=== PATIENT | female | born 1985 | race Hispanic/Latino ===

== ENCOUNTER 2016-04-29 14:17 | Emergency (ER) | payer SELFPAY ==
[2016-04-29 15:09] VITALS: BP 142/86
== END 2016-04-29 22:32 | disposition left against medical advice (07) ==
LOC: ED 14:17
DX: Z20.2 Contact with and (suspected) exposure to infections with a predominantly sexual mode of transmission (principal); Z53.21 Procedure and treatment not carried out due to patient leaving prior to being seen by health care provider

== ENCOUNTER 2017-11-20 10:28 | Inpatient (IN) | payer SELFPAY ==
[2017-11-20] MEDS ORDERED: AMIDATE IV ONE ×2 (10:36→10:37)
[2017-11-20] MEDS ORDERED: ZEMURON IV ONE ×3 (10:37→12:20)
[2017-11-20] MEDS ORDERED: VASELINE LIP THERAPY TP PRN (10:44)
[2017-11-20] MEDS ORDERED: ARTIFICIAL TEARS OPHTH OINT OU PRN (10:44)
--- NOTE | 2017-11-20 10:46 | Emergency Department Report ---
ED General Adult HPI - General Chief complaint: Overdose Stated complaint: OVERDOSE Time Seen by Provider: 11/20/17 10:42 Source: EMS (verbal report received from EMS.ems notes not available at time of chart dictation) Mode of arrival: Stretcher Limitations: Altered Mental Status, Physical Limitation - History of Present Illness Initial comments: This is a 32-year-old female who is not known to this provider previously, who is brought to the hospital by EMS after being found down in the parking lot, for uncertain duration of time and for uncertain mechanism. Apparently, as per EMS, patient had been using GHB. This is received from collateral information from other people in the parking lot. EMS reports normal fingerstick in the field, and no response to Narcan. Upon arrival to the ER, the patient is obtunded, with a GCS of 3. She is therefore intubated emergently for airway protection. After receiving etomidate, 20 mg, patient became agitated, and moved 4 extremities and had to be physically restrained for her safety. She is then given 100 mg of rocuronium. Post intubation, a code trauma is called overhead as the patient was found down for uncertain mechanism and uncertain duration of time. After the patient's airway is secured, breath sounds are clear to auscultation bilaterally, the patient has 2+ pulses in the upper, lower extremities and on appropriate blood pressure is tachycardic. She still has a GCS of 3, and on exposure, has no obvious penetrating or blunt injury. Patient does have some ants crawling on her. Her secondary survey was equally unremarkable. A postintubation x-ray demonstrated that the endotracheal tube was abutting the right mainstem, and was subsequently retracted 2 cm by the respiratory therapist. The patient is made at 1013 given presumed overdose of unknown intent, the noncontrast CT spine of the brain, cervical spine are pending. EKG, appropriate laboratory studies pending at this time. -: unknown Radiation: other Quality: other Consistency: other Improves with: other Worsens with: other Associated Symptoms: other Treatments Prior to Arrival: other (EMS gave Narcan) - Related Data Home Medications Medication Instructions Recorded Confirmed Last Taken No Known Home Medications [No 04/29/16 04/29/16 Unknown Reported Home Medications] Allergies Allergy/AdvReac Type Severity Reaction Status Date / Time No Known Allergies Allergy Verified 11/20/17 10:46 ED Review of Systems ROS: Stated complaint: OVERDOSE Other details as noted in HPI ED Past Medical Hx - Past Medical History Hx Kidney Stones: Yes Additional medical history: STD exposure - Surgical History Additional Surgical History: Left wrist surgery - Social History Smoking Status: Current Every Day Smoker Substance Use Type: Alcohol - Medications Home Medications: Home Medications Medication Instructions Recorded Confirmed Last Taken Type No Known Home Medications [No 04/29/16 04/29/16 Unknown History Reported Home Medications] ED Physical Exam - General Limitations: Altered Mental Status, Physical Limitation General appearance: obtunded - Head Head exam: Present: atraumatic, normocephalic - Eye Eye exam: Present: normal appearance, PERRL (3 mm bilaterally, minimally reactive to light) - ENT ENT exam: Present: normal exam, normal orophraynx, normal external ear exam - Neck Neck exam: Present: normal inspection. Absent: tenderness, meningismus - Respiratory Respiratory exam: Present: decreased breath sounds. Absent: wheezes, rales, rhonchi, stridor - Cardiovascular Cardiovascular Exam: Present: regular rate, normal rhythm, normal heart sounds. Absent: bradycardia, tachycardia, irregular rhythm - GI/Abdominal GI/Abdominal exam: Present: soft. Absent: distended, tenderness, guarding, rebound, rigid, pulsatile mass - Rectal Rectal exam: Present: normal inspection, normal rectal tone, other (chaperoned by nurse Coretta Light). Absent: black stool, bloody stool, fecal impaction, hemorrhoids - External exam: Present: normal external exam, other (chaperoned by nurse Coretta Light). Absent: bleeding - Extremities Exam Extremities exam: Present: normal inspection, normal capillary refill, other (2 + pulses noted in the bilateral upper, lower extremities. Compartments soft. No long bony tenderness. The pelvis is stable.). Absent: pedal edema, joint swelling, calf tenderness - Back Exam Back exam: Present: normal inspection, full ROM. Absent: tenderness, CVA tenderness (R), paraspinal tenderness, vertebral tenderness - Neurological Exam Neurological exam: Present: altered, other (logical examination limited secondary to altered mental status) - Psychiatric Psychiatric exam: Present: other (patient is nonverbal) - Skin Skin exam: Present: dry ED Course Vital Signs 11/20/17 11/20/17 11/20/17 10:30 10:32 10:44 Temperature Pulse Rate 96 H 87 79 Respiratory 12 16 Rate Blood Pressure 139/89 130/86 O2 Sat by Pulse 97 94 100 Oximetry 11/20/17 11/20/17 11/20/17 10:45 11:00 11:15 Temperature Pulse Rate 92 H 112 H Respiratory 12 18 Rate Blood Pressure 138/98 158/117 139/92 O2 Sat by Pulse 100 100 Oximetry 11/20/17 11/20/17 11/20/17 12:14 12:15 12:31 Temperature Pulse Rate 75 93 H Respiratory 20 18 Rate Blood Pressure 104/70 104/70 116/74 O2 Sat by Pulse 100 Oximetry 11/20/17 11/20/17 11/20/17 12:45 13:00 13:15 Temperature 94.8 F L Pulse Rate 86 83 80 Respiratory 18 20 20 Rate Blood Pressure 125/82 125/84 129/85 O2 Sat by Pulse 100 100 99 Oximetry 11/20/17 11/20/17 13:30 13:31 Temperature 94.8 F L Pulse Rate 74 Respiratory 20 Rate Blood Pressure 129/85 O2 Sat by Pulse 100 Oximetry - Reevaluation(s) Reevaluation #1: 11/20/17 12:[address] scan, patient became agitated and was thrashing around. Her IV sites were compromised and were self discontinued. Patient given intramuscular ketamine, and IV rocuronium, an IV access was reestablished. Nursing team working on additional IV access, I verbally recommended propofol, 50 mcg/kg/m, in conjunction with a fentanyl drip. Reevaluation #2: 11/20/17 13:34 CT scan of the brain, cervical spine negative for acute disease. Patient is found to be hypothermic. She will be started on active rewarming measures. Given her altered mental status and hypothermia without a clear explanation, patient will be administratively consented for spinal tap to rule out emergent/ infectious etiology. She'll be started empirically on vancomycin, ceftriaxone, steroids, and acyclovir. Isolation precautions have been ordered. Dr. Bahena accepted the patient to the medical service. Reevaluation #3: 11/20/17 14:32 Endotracheal tube has been retracted by respiratory therapy after repeat x-ray of the chest has been performed. Spinal tap was performed. Results pending. - EJ/Peripheral Line Arm R Time Out Performed: No (emergency situation) Indications: nurses unable to establis, multiple IV sites needed Skin Cleansed in Sterile Fashion: Yes Size: 20 Dressing Placed: Tegaderm Patient Tolerated Procedure: well - Intubation Time Out Performed: No (emergent) Sedative: Etomidate Mg Given: 20 Paralytic: Rocuronium Mg Given: 100 Laryngoscope: Mello Size: 3 ET Tube Size: 7.5 Tube Secured Location: teeth Tube Placement Confirmation: visualized tube passing t, equal breath sounds bilat, no breath sounds over epi, confirmation by capnometr Patient Tolerated Procedure: well Intubation Complications: none Additional Comments: Patient placed on nasal cannula at 15 L/m. Receives iwa-zedto-gege ventilation. Towel rolls are placed underneath the shoulder blades to align the ear to the sternal notch. Patient is induced and paralyzed. A 7.5 endotracheal tube was inserted with 1 attempt with no difficulty. The patient tolerated the procedure well. Post intubation x-ray showed placement abutting the right mainstem, and endotracheal tube is retracted 3 cm by the respiratory therapist. - Lumbar Puncture Consent Obtained: emergent situation Time Out Performed: Yes Indication for Procedure: change in mental status Patient Position: left lateral decubitus Skin Prep: Povidone-Iodine 1% Local Anesthetic Used: Lidocaine 1% Amount of anesthesia used (mls): 8 Spinal Needle Gauge: 20G Spinal Needle Length: 3.5in Interspace Used: L4-L5 Fluid Initially Obtained: clear Complications: traumatic tap, bleeding Patient Tolerated Procedure: well ED Medical Decision Making - Lab Data Result diagrams: 11/20/17 10:50 11/20/17 10:50 Vital Signs 11/20/17 10:30 Pulse Rate 96 H Respiratory 12 Rate Blood Pressure 139/89 O2 Sat by Pulse 97 Oximetry Lab Results 11/20/17 11/20/17 11/20/17 Range/Units 10:50 10:50 10:50 WBC 6.9 (4.5-11.0) K/mm3 RBC 4.48 (3.65-5.03) M/mm3 Hgb 12.3 (10.1-14.3) gm/dl Hct 37.6 (30.3-42.9) % MCV 84 (79-97) fl MCH 28 (28-32) pg MCHC 33 (30-34) % RDW 13.7 (13.2-15.2) % Plt Count 249 (140-440) K/mm3 Lymph % (Auto) 35.4 H (13.4-35.0) % Arroyo % (Auto) 10.0 H (0.0-7.3) % Eos % (Auto) 1.7 (0.0-4.3) % Baso % (Auto) 1.2 (0.0-1.8) % Lymph # 2.4 (1.2-5.4) K/mm3 Arroyo # 0.7 (0.0-0.8) K/mm3 Eos # 0.1 (0.0-0.4) K/mm3 Baso # 0.1 (0.0-0.1) K/mm3 Seg Neutrophils % 51.7 (40.0-70.0) % Seg Neutrophils # 3.6 (1.8-7.7) K/mm3 PT 13.6 (12.2-14.9) Sec. INR 0.99 (0.87-1.13) APTT 32.7 (24.2-36.6) Sec. Sodium 138 (137-145) mmol/L Potassium 3.8 (3.6-5.0) mmol/L Chloride 102.7 (98-107) mmol/L Carbon Dioxide 22 (22-30) mmol/L Anion Gap 17 mmol/L BUN 20 H (7-17) mg/dL Creatinine 0.7 (0.7-1.2) mg/dL Estimated GFR > 60 ml/min BUN/Creatinine Ratio 29 % Glucose 102 H (65-100) mg/dL Calcium 9.0 (8.4-10.2) mg/dL Total Bilirubin 0.20 (0.1-1.2) mg/dL AST 16 (5-40) units/L ALT 10 (7-56) units/L Alkaline Phosphatase 66 (35-129) units/L Total Creatine Kinase 106 (30-135) units/L Troponin T < 0.010 (0.00-0.029) ng/mL Total Protein 6.9 (6.3-8.2) g/dL Albumin 4.1 (3.9-5) g/dL Albumin/Globulin Ratio 1.5 % HCG, Quant (0-4) mIU/mL Salicylates (2.8-20.0) mg/dL Acetaminophen (10.0-30.0) ug/mL Plasma/Serum Alcohol (0-0.07) % 11/20/17 11/20/17 11/20/17 Range/Units 10:50 10:50 10:50 WBC (4.5-11.0) K/mm3 RBC (3.65-5.03) M/mm3 Hgb (10.1-14.3) gm/dl Hct (30.3-42.9) % MCV (79-97) fl MCH (28-32) pg MCHC (30-34) % RDW (13.2-15.2) % Plt Count (140-440) K/mm3 Lymph % (Auto) (13.4-35.0) % Arroyo % (Auto) (0.0-7.3) % Eos % (Auto) (0.0-4.3) % Baso % (Auto) (0.0-1.8) % Lymph # (1.2-5.4) K/mm3 Arroyo # (0.0-0.8) K/mm3 Eos # (0.0-0.4) K/mm3 Baso # (0.0-0.1) K/mm3 Seg Neutrophils % (40.0-70.0) % Seg Neutrophils # (1.8-7.7) K/mm3 PT (12.2-14.9) Sec. INR (0.87-1.13) APTT (24.2-36.6) Sec. Sodium (137-145) mmol/L Potassium (3.6-5.0) mmol/L Chloride (98-107) mmol/L Carbon Dioxide (22-30) mmol/L Anion Gap mmol/L BUN (7-17) mg/dL Creatinine (0.7-1.2) mg/dL Estimated GFR ml/min BUN/Creatinine Ratio % Glucose (65-100) mg/dL Calcium (8.4-10.2) mg/dL Total Bilirubin (0.1-1.2) mg/dL AST (5-40) units/L ALT (7-56) units/L Alkaline Phosphatase (35-129) units/L Total Creatine Kinase (30-135) units/L Troponin T (0.00-0.029) ng/mL Total Protein (6.3-8.2) g/dL Albumin (3.9-5) g/dL Albumin/Globulin Ratio % HCG, Quant (0-4) mIU/mL Salicylates < 0.3 L (2.8-20.0) mg/dL Acetaminophen < 5.0 L (10.0-30.0) ug/mL Plasma/Serum Alcohol < 0.01 (0-0.07) % 11/20/17 Range/Units 10:50 WBC (4.5-11.0) K/mm3 RBC (3.65-5.03) M/mm3 Hgb (10.1-14.3) gm/dl Hct (30.3-42.9) % MCV (79-97) fl MCH (28-32) pg MCHC (30-34) % RDW (13.2-15.2) % Plt Count (140-440) K/mm3 Lymph % (Auto) (13.4-35.0) % Arroyo % (Auto) (0.0-7.3) % Eos % (Auto) (0.0-4.3) % Baso % (Auto) (0.0-1.8) % Lymph # (1.2-5.4) K/mm3 Arroyo # (0.0-0.8) K/mm3 Eos # (0.0-0.4) K/mm3 Baso # (0.0-0.1) K/mm3 Seg Neutrophils % (40.0-70.0) % Seg Neutrophils # (1.8-7.7) K/mm3 PT (12.2-14.9) Sec. INR (0.87-1.13) APTT (24.2-36.6) Sec. Sodium (137-145) mmol/L Potassium (3.6-5.0) mmol/L Chloride (98-107) mmol/L Carbon Dioxide (22-30) mmol/L Anion Gap mmol/L BUN (7-17) mg/dL Creatinine (0.7-1.2) mg/dL Estimated GFR ml/min BUN/Creatinine Ratio % Glucose (65-100) mg/dL Calcium (8.4-10.2) mg/dL Total Bilirubin (0.1-1.2) mg/dL AST (5-40) units/L ALT (7-56) units/L Alkaline Phosphatase (35-129) units/L Total Creatine Kinase (30-135) units/L Troponin T (0.00-0.029) ng/mL Total Protein (6.3-8.2) g/dL Albumin (3.9-5) g/dL Albumin/Globulin Ratio % HCG, Quant < 2 (0-4) mIU/mL Salicylates (2.8-20.0) mg/dL Acetaminophen (10.0-30.0) ug/mL Plasma/Serum Alcohol (0-0.07) % - EKG Data -: EKG Interpreted by Hi EKG shows normal: sinus rhythm - EKG Data When compared to previous EKG there are: previous EKG unavailable 11/20/17 14:44 Sinus, 68 bpm, normal axis, T-wave inversion V3, QTC prolonged, abnormal EKG, borderline atrial enlargement, not a STEMI - Radiology Data Radiology results: pending, report reviewed, image reviewed X-ray of the chest shows no acute disease, endotracheal tube is abutting the right mainstem. - Medical Decision Making Differential diagnosis, including not limited to: Toxic encephalopathy, GHB overdose, intracranial injury, cervical spine fracture, suicide attempts Assessment and plan: 32-year-old female found unresponsive after reported GHB ingestion. She required intubation for GCS of 3 and altered mental status. She was intubated without difficulty. Laboratory studies thus far unremarkable for significant toxicologic insult. X-ray of the chest is appreciated. EKG is pending. CT scan of the brain, cervical spine pending. Patient is placed on a 1013. Assuming no intracranial or cervical spine injury noted that would require transfer, patient will be admitted to this hospital for supportive care , and psychiatric consultation which has been placed. The case was discussed with the critical care physician, Dr. Montero, who agrees with this plan and will see the patient in consultation in the intensive care unit. Critical Care Time: Yes Critical care time in (mins) excluding proc time.: 120 Critical care attestation.: If time is entered above; I have spent that time in minutes in the direct care of this critically ill patient, excluding procedure time. ED Disposition Clinical Impression: Respiratory failure Qualifiers: Chronicity: acute Respiratory failure complication: hypoxia Qualified Code(s): J96.01 - Acute respiratory failure with hypoxia Disposition: DC-09 OP ADMIT IP TO THIS HOSP Is pt being admited?: Yes Condition: Critical
[2017-11-20] MEDS ORDERED: NACL 0.9% 500 ML IV SCH (11:00)
[2017-11-20 11:01] LABS: Basophils # (Auto) 0.1 K/mm3 (0.0-0.1); Basophils % (Auto) 1.2 % (0.0-1.8); Eosinophils # (Auto) 0.1 K/mm3 (0.0-0.4); Eosinophils % (Auto) 1.7 % (0.0-4.3); Hematocrit 37.6 % (30.3-42.9); Hemoglobin 12.3 gm/dl (10.1-14.3); Lymphocytes # (Auto) 2.4 K/mm3 (1.2-5.4); Lymphocytes % (Auto) 35.4 % (13.4-35.0); Mean Corpuscular HGB Conc 33 % (30-34); Mean Corpuscular Hemoglobin 28 pg (28-32); Mean Corpuscular Volume 84 fl (79-97); Monocytes # (Auto) 0.7 K/mm3 (0.0-0.8); Platelet Count 249 K/mm3 (140-440); Red Blood Count 4.48 M/mm3 (3.65-5.03); Red Cell Distribution Width 13.7 % (13.2-15.2)
[2017-11-20] MEDS: DIPRIVAN 10 MG/ML 1,000 MG/100 ML BOTTLE IV SCH ×2 (11:11→21:43)
[2017-11-20 11:12] LABS: INR 0.99 (0.87-1.13)
[2017-11-20 11:13] LABS: Partial Thromboplastin Time 32.7 Sec. (24.2-36.6)
--- NOTE | 2017-11-20 11:19 | XRay Report ---
AP CHEST: HISTORY: Trauma Endotracheal tube terminates at the gretta. Recommend retraction by 4cm. AP view of the chest demonstrates a normal mediastinal and cardiac contour with clear lungs and normal bony and soft tissue structures. IMPRESSION: Unremarkable AP chest.
[2017-11-20 11:21] LABS: Alanine Aminotransferase 10 units/L (7-56); Albumin 4.1 g/dL (3.9-5); BUN/Creatinine Ratio 29; Blood Urea Nitrogen 20 mg/dL (7-17); Hemolysis Index 21
[2017-11-20] MEDS ORDERED: KETAMINE HCL IV ONE (12:23)
[2017-11-20] MEDS ORDERED: KETALAR IM ONE (12:25)
[2017-11-20] MEDS: fentaNYL DRIP Premix 2,000 MCG/100 ML BAG IV SCH ×2 (12:35→22:08)
--- NOTE | 2017-11-20 13:11 | Cat Scan Report ---
CT HEAD WITHOUT CONTRAST: HISTORY: Altered mental status, patient found down, suspected overdose. TECHNIQUE: Sequential 2.5mm CT images. COMPARISON: none. FINDINGS: Cerebral Parenchyma: Within normal limits. Cerebellum: Within normal limits. Brainstem: Within normal limits. Ventricles: Normal. Sella: Normal. Extra-axial spaces: Normal. Basal Cisterns: Normal. Intracranial Hemorrhage: None. Midline Shift: None. Calvarium: Normal. Sinuses: Mild mucosal thickening is noted throughout the ethmoid and frontal sinuses. Mastoid Air Cells: Normal. Visualized Orbits: Normal. IMPRESSION: No acute intracranial process is identified.
--- NOTE | 2017-11-20 13:12 | Cat Scan Report ---
CT SCAN OF THE CERVICAL SPINE: HISTORY: Patient found down, unresponsive. TECHNIQUE: Contiguous 1.25 mm axial images of the cervical spine were obtained. Sagittal and coronal reformatted images. FINDINGS: There is normal alignment of the cervical spine. The body, pedicles and posterior ligaments appear normal. No evidence of fracture or subluxation is seen. The spinal canal appears normal. The prevertebral soft tissues appear normal. IMPRESSION: Unremarkable CT of the cervical spine. No acute process is noted.
--- NOTE | 2017-11-20 13:13 | XRay Report ---
AP CHEST: HISTORY: Endotracheal tube placement The endotracheal tube has been retracted slightly since 1053 hrs. earlier today but still remains within 1 cm of the gretta. Retraction by 3 cm is recommended. AP view of the chest demonstrates a normal mediastinal and cardiac contour with clear lungs and normal bony and soft tissue structures. IMPRESSION: Unremarkable AP chest. Endotracheal tube as described.
--- NOTE | 2017-11-20 13:24 | History and Physical Report ---
History of Present Illness Chief complaint: Unresponsive History of present illness: 32 YO Female with Nicotine Dependence presents to ED for evaluation. Pt is stuporous and unable to provide history. Pt found down and unresponsive in a parking lot. EMS was notified, and upon arrival they found the patient to be unresponsive. Witnesses report that patient had bee using GHB in large quantities. Pt was transported to [facility] for further care and evaluation. Pt seen and evaluated in ED and found to be have Respiratory Failure, Encephalopathy and is unable to protect her airway. Pt intubated, sedated and placed on vent support. Pt admitted to ICU. Pulmonary consulted in ED. No further history obtainable. Past History Past Medical History: other (Nicotine Dependence) Social history: single, smoking Family history: no significant family history (reviewed) Medications and Allergies Allergies Allergy/AdvReac Type Severity Reaction Status Date / Time No Known Allergies Allergy Verified 11/20/17 10:46 Home Medications Medication Instructions Recorded Confirmed Last Taken Type No Known Home Medications [No 04/29/16 04/29/16 Unknown History Reported Home Medications] Active Meds: Active Medications Hydrophilic Ointment (Vaseline Lip Therapy) 1 applic TP Q2HR PRN PRN Reason: Dry Lips Fentanyl Citrate (Fentanyl Drip Premix) 2,000 mcg in 100 mls @ 4.309 mls/hr IV TITR LE; Protocol Propofol (Diprivan 10 Mg/Ml) 1,000 mg in 100 mls @ 2.585 mls/hr IV TITR LE; Protocol Multi-Ingred Cream/Lotion/Oil/Oint (Artificial Tears Ophth Oint) 1 applic OU Q4HR PRN PRN Reason: Dry Eye(s) Sodium Chloride (Nacl 0.9% 500 Ml) 1 ml IV DIRECT LE Review of Systems ROS unobtainable: due to mental status Exam - Constitutional Vitals: Temp Pulse Resp BP Pulse Ox 96 H 12 139/89 97 11/20/17 10:30 11/20/17 10:30 11/20/17 10:30 11/20/17 10:30 General appearance: Present: mild distress - EENT Eyes: Present: miosis - Neck Neck: Present: supple, normal ROM - Respiratory Respiratory effort: labored Respiratory: bilateral: diminished - Cardiovascular Heart Sounds: Present: S1 & S2. Absent: rub, click - Extremities Extremities: pulses symmetrical, No edema Peripheral Pulses: within normal limits - Abdominal General gastrointestinal: Present: soft, non-tender, non-distended, normal bowel sounds Female genitourinary: Present: normal - Integumentary Integumentary: Present: dry, clammy, decreased turgor - Musculoskeletal Musculoskeletal: generalized weakness - Psychiatric Psychiatric: no intact judgment & insight, no memory intact, no cooperative, agitated - Neurologic Neurologic: moves all extremities, no gait normal Results - Labs CBC & Chem 7: 11/20/17 10:50 11/20/17 10:50 Labs: Abnormal lab results 11/20/17 11/20/17 11/20/17 Range/Units 10:50 10:50 10:50 Lymph % (Auto) 35.4 H (13.4-35.0) % Barton % (Auto) 10.0 H (0.0-7.3) % POC ABG pCO2 (35-45) POC ABG pO2 (80-105) BUN 20 H (7-17) mg/dL Glucose 102 H (65-100) mg/dL Salicylates < 0.3 L (2.8-20.0) mg/dL Acetaminophen (10.0-30.0) ug/mL 11/20/17 11/20/17 Range/Units 10:50 12:55 Lymph % (Auto) (13.4-35.0) % Barton % (Auto) (0.0-7.3) % POC ABG pCO2 51.3 H (35-45) POC ABG pO2 500 H (80-105) BUN (7-17) mg/dL Glucose (65-100) mg/dL Salicylates (2.8-20.0) mg/dL Acetaminophen < 5.0 L (10.0-30.0) ug/mL Assessment and Plan - Patient Problems (1) Respiratory failure Current Visit: Yes Status: Acute Qualifiers: Chronicity: acute Respiratory failure complication: hypoxia Qualified Code(s): J96.01 - Acute respiratory failure with hypoxia Plan to address problem: Supplemental oxygen, nebulizer therapy, Chest x ray, Pt intubated, sedated on vent support, SBT in Am, sedation holiday, wean vent as tolerated. The high probability of a clinically significant, sudden or life threatening deterioration of the [pulmonary, cardiac, neuro] system(s) required my full and direct attention, intervention and personal management. The aggregate critical care time was [65] minutes. This time is in addition to time spent performing reported procedures but includes the following: [x] Data Review and interpretation [x] Patient assessment and monitoring of vital signs [x] Documentation [x] Medication orders and management (2) Encephalopathy Current Visit: Yes Status: Acute Plan to address problem: CT Head, neuro check, supportive care. (3) Nicotine dependence unspecified, with withdrawal Current Visit: Yes Status: Acute Qualifiers: Nicotine product type: cigarettes Qualified Code(s): F17.213 - Nicotine dependence, cigarettes, with withdrawal Plan to address problem: Smoking cessation counseling when awake and alert, supportive care (4) Suicide attempt by drug ingestion Current Visit: Yes Status: Suspected Qualifiers: Encounter type: initial encounter Qualified Code(s): T50.902A - Poisoning by unspecified drugs, medicaments and biological substances, intentional self- harm, initial encounter Plan to address problem: [address], supportive care (5) DVT prophylaxis Current Visit: Yes Status: Acute Plan to address problem: SCD to BLE while in bed
[2017-11-20] MEDS ORDERED: XYLOCAINE 1% 20 mL ONE (13:30)
[2017-11-20] MEDS ORDERED: DECADRON IV ONE (13:31)
[2017-11-20] MEDS ORDERED: VANCOMYCIN VIAL IV ONE (13:31)
[2017-11-20] MEDS ORDERED: ZOVIRAX 800 MG in NACL 0.9% 100 ML IV STA (13:31)
[2017-11-20] MEDS ORDERED: XYLOCAINE 1% 20 mL INFILTRATI ONE ×2 (13:32)
[2017-11-20] MEDS ORDERED: SODIUM CHLORIDE FLUSH SYRINGE 10 ML IV PRN (13:32)
[2017-11-20] MEDS ORDERED: XYLOCAINE 2% INFILTRATI ONE (13:32)
[2017-11-20] MEDS ORDERED: ROCEPHIN 2,000 MG in NACL 0.9% 50 ML IV ONE (13:32)
[2017-11-20 13:56] LABS: Bilirubin,Urine NEG (Negative); Blood,Urine NEG (Negative); Color,Urine Yellow (Yellow); Mucus,Urine 2+ /HPF
[2017-11-20] MEDS ORDERED: VANCOMYCIN 1,750 MG in NACL 0.9% 500 ML 500 ML IV ONE (14:00)
[2017-11-20] MEDS ORDERED: NACL 0.9% IV ONE (14:00)
[2017-11-20] MEDS ORDERED: CEFTRIAXONE IV ONE (14:00)
[2017-11-20 14:09] LABS: Amphetamine Screen,Urine PRESUMPTIVE NEGATIVE; Benzodiazepines Screen,Urine PRESUMPTIVE NEGATIVE; Cannabinoid Screen,Urine PRESUMPTIVE NEGATIVE; Cocaine Screen,Urine PRESUMPTIVE NEGATIVE; Methadone Screen,Urine PRESUMPTIVE NEGATIVE; Opiate Screen,Urine PRESUMPTIVE NEGATIVE
[2017-11-20 14:56] LABS: Glucose,CSF 71 mg/dL
[2017-11-20 15:59] LABS: Appearance,CSF Clear; Basophils CSF 0 %; Red Blood Cell,CSF 8 /mm3 (0-0); White Blood Cell,CSF 1 /mm3 (1-10)
[2017-11-20] MEDS ORDERED: DECADRON ONE (16:00)
[2017-11-20] MEDS ORDERED: VERSED IV PRN (18:12)
[2017-11-20] MEDS ORDERED: MIDAZOLAM 100 MG in NACL 0.9% 80 ML IV ONE (19:00)
[2017-11-20] MEDS: SODIUM CHLORIDE FLUSH SYRINGE 10 ML IV SCH (22:07)
[2017-11-21] MEDS ORDERED: NACL 0.9% 500 ML 500 ML IV ONE (01:00)
[2017-11-21] MEDS ORDERED: NACL 0.9% 1000 ML 1,000 ML IV ONE (01:00)
[2017-11-21] MEDS ORDERED: NACL 0.9% 1000 ML 1,000 ML ONE (01:05)
--- NOTE | 2017-11-21 02:10 | XRay Report ---
FINAL REPORT EXAM: XR CHEST 1V AP HISTORY: follow up respiratory failure TECHNIQUE: Single AP portable radiograph of the chest was obtained. PRIORS: None. FINDINGS: Tube/lines: The endotracheal tube terminates approximately 3.5 cm proximal to the gretta. There are numerous overlying monitoring leads. Probable orogastric tube overlies the stomach. The lungs are without focal consolidation, pleural effusion or pneumothorax. The cardiac silhouette is not enlarged. No acute osseous abnormality. IMPRESSION: No radiographic evidence of acute cardiopulmonary disease. Endotracheal tube appears appropriately position.
[2017-11-21] MEDS: DIPRIVAN 10 MG/ML 1,000 MG/100 ML BOTTLE IV SCH (04:37)
[2017-11-21] MEDS ORDERED: PEPCID IV SCH (10:00)
--- NOTE | 2017-11-21 10:09 | Progress Note ---
<MERNA KILPATRICK - Last Filed: 11/21/17 18:54> Assessment and Plan Assessment and plan: (1) Ventilator Dependant Respiratory failure Pulmonary follow Vent setting per Pulmonary nebulizer therapy, Chest x ray wean vent as tolerated (per pulm). (2) Encephalopathy (likely due to DOD) CT Head Monitor Neuro check Supportive care. (3) Nicotine use disorder Need Smoking cessation counseling when awake (4) Suicide attempt by drug ingestion [address]3 [address], supportive care Psych eval when awake DVT prophylaxis, SCD to BLE while in bed GI prophylasix with Protonix History Interval history: Pt is asleep with eyes closed, open eyes and awaked when name called, ventilator setting noted Hospitalist Physical - Constitutional Vitals: Temp Pulse Resp BP Pulse Ox 98.3 F 89 20 93/62 100 11/21/17 09:00 11/21/17 08:01 11/21/17 08:01 11/21/17 07:45 11/21/17 08:01 General appearance: Present: mild distress - EENT Eyes: Present: PERRL, irregular pupil (sluggish) - Respiratory Respiratory: bilateral: CTA - Cardiovascular Rhythm: regular - Extremities Extremities: No edema Peripheral Pulses: within normal limits - Abdominal General gastrointestinal: non-tender, non-distended - Integumentary Integumentary: Present: clear, warm, dry - Psychiatric Psychiatric: other (unable to assess) - Neurologic Neurologic: other (unable to assess) Results - Labs CBC & Chem 7: 11/20/17 10:50 11/20/17 10:50 Labs: Laboratory Last Values WBC 6.9 K/mm3 (4.5-11.0) 11/20/17 10:50 RBC 4.48 M/mm3 (3.65-5.03) 11/20/17 10:50 Hgb 12.3 gm/dl (10.1-14.3) 11/20/17 10:50 Hct 37.6 % (30.3-42.9) 11/20/17 10:50 MCV 84 fl (79-97) 11/20/17 10:50 MCH 28 pg (28-32) 11/20/17 10:50 MCHC 33 % (30-34) 11/20/17 10:50 RDW 13.7 % (13.2-15.2) 11/20/17 10:50 Plt Count 249 K/mm3 (140-440) 11/20/17 10:50 Lymph % (Auto) 35.4 % (13.4-35.0) H 11/20/17 10:50 [place] % (Auto) 10.0 % (0.0-7.3) H 11/20/17 10:50 Eos % (Auto) 1.7 % (0.0-4.3) 11/20/17 10:50 Baso % (Auto) 1.2 % (0.0-1.8) 11/20/17 10:50 Lymph # 2.4 K/mm3 (1.2-5.4) 11/20/17 10:50 [place] # 0.7 K/mm3 (0.0-0.8) 11/20/17 10:50 Eos # 0.1 K/mm3 (0.0-0.4) 11/20/17 10:50 Baso # 0.1 K/mm3 (0.0-0.1) 11/20/17 10:50 Seg Neutrophils % 51.7 % (40.0-70.0) 11/20/17 10:50 Seg Neutrophils # 3.6 K/mm3 (1.8-7.7) 11/20/17 10:50 PT 13.6 Sec. (12.2-14.9) 11/20/17 10:50 INR 0.99 (0.87-1.13) 11/20/17 10:50 APTT 32.7 Sec. (24.2-36.6) 11/20/17 10:50 POC ABG pH 7.478 (7.35-7.45) H 11/21/17 05:02 POC ABG pCO2 32.3 (35-45) L 11/21/17 05:02 POC ABG pO2 200 (80-105) H 11/21/17 05:02 POC ABG HCO3 24.0 11/21/17 05:02 POC ABG Total CO2 25 11/21/17 05:02 POC ABG O2 Sat 100 11/21/17 05:02 POC ABG Base Excess 0 11/21/17 05:02 FiO2 45 % 11/21/17 05:02 Sodium 138 mmol/L (137-145) 11/20/17 10:50 Potassium 3.8 mmol/L (3.6-5.0) 11/20/17 10:50 Chloride 102.7 mmol/L (98-107) 11/20/17 10:50 Carbon Dioxide 22 mmol/L (22-30) 11/20/17 10:50 Anion Gap 17 mmol/L 11/20/17 10:50 BUN 20 mg/dL (7-17) H 11/20/17 10:50 Creatinine 0.7 mg/dL (0.7-1.2) 11/20/17 10:50 Estimated GFR > 60 ml/min 11/20/17 10:50 BUN/Creatinine Ratio 29 % 11/20/17 10:50 Glucose 102 mg/dL (65-100) H 11/20/17 10:50 POC Glucose 101 (70-105) 11/21/17 00:09 Calcium 9.0 mg/dL (8.4-10.2) 11/20/17 10:50 Total Bilirubin 0.20 mg/dL (0.1-1.2) 11/20/17 10:50 AST 16 units/L (5-40) 11/20/17 10:50 ALT 10 units/L (7-56) 11/20/17 10:50 Alkaline Phosphatase 66 units/L (35-129) 11/20/17 10:50 Total Creatine Kinase 106 units/L (30-135) 11/20/17 10:50 Troponin T < 0.010 ng/mL (0.00-0.029) 11/20/17 10:50 Total Protein 6.9 g/dL (6.3-8.2) 11/20/17 10:50 Albumin 4.1 g/dL (3.9-5) 11/20/17 10:50 Albumin/Globulin Ratio 1.5 % 11/20/17 10:50 HCG, Quant < 2 mIU/mL (0-4) 11/20/17 10:50 Urine Color Yellow (Yellow) 11/20/17 13:30 Urine Turbidity Slightly-cloudy (Clear) 11/20/17 13:30 Urine pH 5.0 (5.0-7.0) 11/20/17 13:30 Ur Specific [place] 1.028 (1.003-1.030) 11/20/17 13:30 Urine Protein 30 mg/dl mg/dL (Negative) 11/20/17 13:30 Urine Glucose (UA) Neg mg/dL (Negative) 11/20/17 13:30 Urine Ketones Tr mg/dL (Negative) 11/20/17 13:30 Urine Blood Neg (Negative) 11/20/17 13:30 Urine Nitrite Neg (Negative) 11/20/17 13:30 Urine Bilirubin Neg (Negative) 11/20/17 13:30 Urine Urobilinogen 4.0 mg/dL (<2.0) 11/20/17 13:30 Ur Leukocyte Esterase Neg (Negative) 11/20/17 13:30 Urine WBC (Auto) 3.0 /HPF (0.0-6.0) 11/20/17 13:30 Urine RBC (Auto) 2.0 /HPF (0.0-6.0) 11/20/17 13:30 U Epithel Cells (Auto) 2.0 /HPF (0-13.0) 11/20/17 13:30 Urine Mucus 2+ /HPF 11/20/17 13:30 CSF Appearance Clear 11/20/17 14:31 CSF Color Colorless 11/20/17 14:31 CSF WBC 1 /mm3 (1-10) 11/20/17 14:31 CSF RBC 8 /mm3 (0-0) 11/20/17 14:31 CSF Seg Neutrophils 0 % (0-6) 11/20/17 14:31 CSF Lymphocytes % 0 % (40-80) 11/20/17 14:31 CSF Reactive Lymphs 0 % 11/20/17 14:31 CSF Monocytes % 0 % (15-45) 11/20/17 14:31 CSF Eosinophils % 0 % 11/20/17 14:31 CSF Basophils 0 % 11/20/17 14:31 CSF Comment No cells seen 11/20/17 14:31 CSF Pathologist Review C 11/20/17 14:31 CSF Glucose 71 mg/dL 11/20/17 14:27 CSF Total Protein 15 mg/dL 11/20/17 14:27 Salicylates < 0.3 mg/dL (2.8-20.0) L 11/20/17 10:50 Urine Opiates Screen Presumptive negative 11/20/17 13:30 Urine Methadone Screen Presumptive negative 11/20/17 13:30 Acetaminophen < 5.0 ug/mL (10.0-30.0) L 11/20/17 10:50 Ur Barbiturates Screen Presumptive negative 11/20/17 13:30 Ur Phencyclidine Scrn Presumptive negative 11/20/17 13:30 Ur Amphetamines Screen Presumptive negative 11/20/17 13:30 U Benzodiazepines Scrn Presumptive negative 11/20/17 13:30 Urine Cocaine Screen Presumptive negative 11/20/17 13:30 U Marijuana (THC) Screen Presumptive negative 11/20/17 13:30 Drugs of Abuse Note Disclamer 11/20/17 13:30 Plasma/Serum Alcohol < 0.01 % (0-0.07) 11/20/17 10:50 <ANGUS BUTLER - Last Filed: 11/23/17 07:15> Assessment and Plan Assessment and plan: I saw and evaluated the patient. I agree with the findings and the plan of care as documented in the Nurse Practitioner's~note, with the following corrections and additions. Hospitalist Physical - Constitutional Vitals: Temp Pulse Resp BP Pulse Ox 97.5 F L 50 L 18 110/65 95 11/23/17 07:10 11/23/17 07:10 11/23/17 07:10 11/23/17 07:10 11/23/17 07:10 Results - Labs CBC & Chem 7: 11/20/17 10:50 11/20/17 10:50 Labs: Laboratory Last Values WBC 6.9 K/mm3 (4.5-11.0) 11/20/17 10:50 RBC 4.48 M/mm3 (3.65-5.03) 11/20/17 10:50 Hgb 12.3 gm/dl (10.1-14.3) 11/20/17 10:50 Hct 37.6 % (30.3-42.9) 11/20/17 10:50 MCV 84 fl (79-97) 11/20/17 10:50 MCH 28 pg (28-32) 11/20/17 10:50 MCHC 33 % (30-34) 11/20/17 10:50 RDW 13.7 % (13.2-15.2) 11/20/17 10:50 Plt Count 249 K/mm3 (140-440) 11/20/17 10:50 Lymph % (Auto) 35.4 % (13.4-35.0) H 11/20/17 10:50 [place] % (Auto) 10.0 % (0.0-7.3) H 11/20/17 10:50 Eos % (Auto) 1.7 % (0.0-4.3) 11/20/17 10:50 Baso % (Auto) 1.2 % (0.0-1.8) 11/20/17 10:50 Lymph # 2.4 K/mm3 (1.2-5.4) 11/20/17 10:50 [place] # 0.7 K/mm3 (0.0-0.8) 11/20/17 10:50 Eos # 0.1 K/mm3 (0.0-0.4) 11/20/17 10:50 Baso # 0.1 K/mm3 (0.0-0.1) 11/20/17 10:50 Seg Neutrophils % 51.7 % (40.0-70.0) 11/20/17 10:50 Seg Neutrophils # 3.6 K/mm3 (1.8-7.7) 11/20/17 10:50 PT 13.6 Sec. (12.2-14.9) 11/20/17 10:50 INR 0.99 (0.87-1.13) 11/20/17 10:50 APTT 32.7 Sec. (24.2-36.6) 11/20/17 10:50 POC ABG pH 7.478 (7.35-7.45) H 11/21/17 05:02 POC ABG pCO2 32.3 (35-45) L 11/21/17 05:02 POC ABG pO2 200 (80-105) H 11/21/17 05:02 POC ABG HCO3 24.0 11/21/17 05:02 POC ABG Total CO2 25 11/21/17 05:02 POC ABG O2 Sat 100 11/21/17 05:02 POC ABG Base Excess 0 11/21/17 05:02 FiO2 45 % 11/21/17 05:02 Sodium 138 mmol/L (137-145) 11/20/17 10:50 Potassium 3.8 mmol/L (3.6-5.0) 11/20/17 10:50 Chloride 102.7 mmol/L (98-107) 11/20/17 10:50 Carbon Dioxide 22 mmol/L (22-30) 11/20/17 10:50 Anion Gap 17 mmol/L 11/20/17 10:50 BUN 20 mg/dL (7-17) H 11/20/17 10:50 Creatinine 0.7 mg/dL (0.7-1.2) 11/20/17 10:50 Estimated GFR > 60 ml/min 11/20/17 10:50 BUN/Creatinine Ratio 29 % 11/20/17 10:50 Glucose 102 mg/dL (65-100) H 11/20/17 10:50 POC Glucose 101 (70-105) 11/21/17 00:09 Calcium 9.0 mg/dL (8.4-10.2) 11/20/17 10:50 Total Bilirubin 0.20 mg/dL (0.1-1.2) 11/20/17 10:50 AST 16 units/L (5-40) 11/20/17 10:50 ALT 10 units/L (7-56) 11/20/17 10:50 Alkaline Phosphatase 66 units/L (35-129) 11/20/17 10:50 Total Creatine Kinase 106 units/L (30-135) 11/20/17 10:50 Troponin T < 0.010 ng/mL (0.00-0.029) 11/20/17 10:50 Total Protein 6.9 g/dL (6.3-8.2) 11/20/17 10:50 Albumin 4.1 g/dL (3.9-5) 11/20/17 10:50 Albumin/Globulin Ratio 1.5 % 11/20/17 10:50 HCG, Quant < 2 mIU/mL (0-4) 11/20/17 10:50 Urine Color Yellow (Yellow) 11/20/17 13:30 Urine Turbidity Slightly-cloudy (Clear) 11/20/17 13:30 Urine pH 5.0 (5.0-7.0) 11/20/17 13:30 Ur Specific [place] 1.028 (1.003-1.030) 11/20/17 13:30 Urine Protein 30 mg/dl mg/dL (Negative) 11/20/17 13:30 Urine Glucose (UA) Neg mg/dL (Negative) 11/20/17 13:30 Urine Ketones Tr mg/dL (Negative) 11/20/17 13:30 Urine Blood Neg (Negative) 11/20/17 13:30 Urine Nitrite Neg (Negative) 11/20/17 13:30 Urine Bilirubin Neg (Negative) 11/20/17 13:30 Urine Urobilinogen 4.0 mg/dL (<2.0) 11/20/17 13:30 Ur Leukocyte Esterase Neg (Negative) 11/20/17 13:30 Urine WBC (Auto) 3.0 /HPF (0.0-6.0) 11/20/17 13:30 Urine RBC (Auto) 2.0 /HPF (0.0-6.0) 11/20/17 13:30 U Epithel Cells (Auto) 2.0 /HPF (0-13.0) 11/20/17 13:30 Urine Mucus 2+ /HPF 11/20/17 13:30 CSF Appearance Clear 11/20/17 14:31 CSF Color Colorless 11/20/17 14:31 CSF WBC 1 /mm3 (1-10) 11/20/17 14:31 CSF RBC 8 /mm3 (0-0) 11/20/17 14:31 CSF Seg Neutrophils 0 % (0-6) 11/20/17 14:31 CSF Lymphocytes % 0 % (40-80) 11/20/17 14:31 CSF Reactive Lymphs 0 % 11/20/17 14:31 CSF Monocytes % 0 % (15-45) 11/20/17 14:31 CSF Eosinophils % 0 % 11/20/17 14:31 CSF Basophils 0 % 11/20/17 14:31 CSF Comment No cells seen 11/20/17 14:31 CSF Pathologist Review C 11/20/17 14:31 CSF Glucose 71 mg/dL 11/20/17 14:27 CSF Total Protein 15 mg/dL 11/20/17 14:27 Salicylates < 0.3 mg/dL (2.8-20.0) L 11/20/17 10:50 Urine Opiates Screen Presumptive negative 11/20/17 13:30 Urine Methadone Screen Presumptive negative 11/20/17 13:30 Acetaminophen < 5.0 ug/mL (10.0-30.0) L 11/20/17 10:50 Ur Barbiturates Screen Presumptive negative 11/20/17 13:30 Ur Phencyclidine Scrn Presumptive negative 11/20/17 13:30 Ur Amphetamines Screen Presumptive negative 11/20/17 13:30 U Benzodiazepines Scrn Presumptive negative 11/20/17 13:30 Urine Cocaine Screen Presumptive negative 11/20/17 13:30 U Marijuana (THC) Screen Presumptive negative 11/20/17 13:30 Drugs of Abuse Note Disclamer 11/20/17 13:30 Plasma/Serum Alcohol < 0.01 % (0-0.07) 11/20/17 10:50
[2017-11-21] MEDS: SODIUM CHLORIDE FLUSH SYRINGE 10 ML IV SCH ×2 (11:58→22:53)
--- NOTE | 2017-11-21 13:21 | Consultation ---
History of Present Illness Consult date: 11/21/17 Requesting physician: HEMA OLVERA Reason for consult: other (Acute Respiratory Failure on MVS; Drug OD) History of present illness: PULMONARY/CCM CONSULT NOTE (Full dictation # [id number]) Please see dictated notes for full details Past History Past Medical History: other (Nicotine Dependence) Social history: single, smoking Family history: no significant family history (reviewed) Medications and Allergies Allergies Allergy/AdvReac Type Severity Reaction Status Date / Time No Known Allergies Allergy Verified 11/20/17 10:46 Home Medications Medication Instructions Recorded Confirmed Last Taken Type No Known Home Medications [No 04/29/16 04/29/16 Unknown History Reported Home Medications] Active Meds: Active Medications Enoxaparin Sodium (Lovenox) 40 mg SUB-Q QDAY@1000 LE Famotidine (Pepcid) 20 mg IV BID LE Last Admin: 11/21/17 11:58 Dose: 20 mg Haloperidol Lactate (Haldol) 5 mg IV Q6H PRN PRN Reason: Agitation Hydrophilic Ointment (Vaseline Lip Therapy) 1 applic TP Q2HR PRN PRN Reason: Dry Lips Fentanyl Citrate (Fentanyl Drip Premix) 2,000 mcg in 100 mls @ 4.309 mls/hr IV TITR LE; Protocol Last Titration: 11/21/17 12:30 Dose: Infused Propofol (Diprivan 10 Mg/Ml) 1,000 mg in 100 mls @ 2.585 mls/hr IV TITR LE; Protocol Last Titration: 11/21/17 12:35 Dose: 0 mcg/kg/min, 0 mls/hr Midazolam HCl 100 mg/ Sodium (Chloride) 100 mls @ 2 mls/hr IV TITR ONE; Protocol Stop: 11/22/17 20:59 Last Titration: 11/21/17 11:30 Dose: 0 mg/hr, 0 mls/hr Midazolam HCl (Versed) 2 mg IV Q1HR PRN PRN Reason: Agitation Multi-Ingred Cream/Lotion/Oil/Oint (Artificial Tears Ophth Oint) 1 applic OU Q4HR PRN PRN Reason: Dry Eye(s) Quetiapine Fumarate (Seroquel) 100 mg PO BID LE Stop: 11/21/17 22:01 Sodium Chloride (Nacl 0.9% 500 Ml) 1 ml IV DIRECT LE Sodium Chloride (Sodium Chloride Flush Syringe 10 Ml) 10 ml IV BID LE Last Admin: 11/21/17 11:58 Dose: 10 ml Sodium Chloride (Sodium Chloride Flush Syringe 10 Ml) 10 ml IV PRN PRN PRN Reason: LINE FLUSH Physical Examination Vital signs: Vital Signs Pulse Resp BP Pulse Ox 96 H 12 139/89 97 11/20/17 10:30 11/20/17 10:30 11/20/17 10:30 11/20/17 10:30 Results - Laboratory Findings CBC and BMP: 11/20/17 10:50 11/20/17 10:50 ABG POC ABG pH 7.478 (7.35-7.45) H 11/21/17 05:02 POC ABG pCO2 32.3 (35-45) L 11/21/17 05:02 POC ABG pO2 200 (80-105) H 11/21/17 05:02 POC ABG HCO3 24.0 11/21/17 05:02 POC ABG Total CO2 25 11/21/17 05:02 POC ABG O2 Sat 100 11/21/17 05:02 PT/INR, D-dimer PT 13.6 Sec. (12.2-14.9) 11/20/17 10:50 INR 0.99 (0.87-1.13) 11/20/17 10:50 Abnormal lab findings: Abnormal Labs 11/20/17 11/20/17 11/20/17 10:50 10:50 10:50 Lymph % (Auto) 35.4 H [place] % (Auto) 10.0 H POC ABG pH POC ABG pCO2 POC ABG pO2 BUN 20 H Glucose 102 H Salicylates < 0.3 L Acetaminophen 11/20/17 11/20/17 11/21/17 10:50 12:55 05:02 Lymph % (Auto) [place] % (Auto) POC ABG pH 7.478 H POC ABG pCO2 51.3 H 32.3 L POC ABG pO2 500 H 200 H BUN Glucose Salicylates Acetaminophen < 5.0 L
[2017-11-21] MEDS: LOVENOX SUB-Q SCH (17:34)
[2017-11-21] MEDS: HALDOL IV PRN (18:30)
[2017-11-21] MEDS ORDERED: GEODON IM PRN (19:16)
[2017-11-21] MEDS: PEPCID PO SCH (22:52)
--- NOTE | 2017-11-22 08:27 | Progress Note ---
Assessment and Plan Assessment and plan: (1)Suicide attempt by drug ingestion [address] Safety precaution One-in-one observation Awaiting Psych eval (2) Nicotine use disorder Smoking Cessation counseling (3) s/p VDRF (day 2 extubation) Sat stable in r/a Monitor VS DC plan likely to drug rehab Awaiting psych recommendation History Interval history: Pt is a wake, calm, respond to question appropriately, c/o headache and dry mouth. Hospitalist Physical - Constitutional Vitals: Temp Pulse Resp BP Pulse Ox 98.9 F 65 16 87/49 98 11/22/17 05:15 11/22/17 05:15 11/22/17 05:15 11/22/17 05:15 11/21/17 21:00 General appearance: Present: no acute distress - EENT Eyes: Present: EOM intact - Neck Neck: Present: normal ROM - Respiratory Respiratory effort: normal Respiratory: bilateral: CTA - Cardiovascular Rhythm: regular - Extremities Extremities: No edema Peripheral Pulses: within normal limits - Abdominal General gastrointestinal: non-tender, non-distended - Psychiatric Psychiatric: depressed (depressed affect and mood.) Results - Labs CBC & Chem 7: 11/20/17 10:50 11/20/17 10:50 Labs: Laboratory Last Values WBC 6.9 K/mm3 (4.5-11.0) 11/20/17 10:50 RBC 4.48 M/mm3 (3.65-5.03) 11/20/17 10:50 Hgb 12.3 gm/dl (10.1-14.3) 11/20/17 10:50 Hct 37.6 % (30.3-42.9) 11/20/17 10:50 MCV 84 fl (79-97) 11/20/17 10:50 MCH 28 pg (28-32) 11/20/17 10:50 MCHC 33 % (30-34) 11/20/17 10:50 RDW 13.7 % (13.2-15.2) 11/20/17 10:50 Plt Count 249 K/mm3 (140-440) 11/20/17 10:50 Lymph % (Auto) 35.4 % (13.4-35.0) H 11/20/17 10:50 [place] % (Auto) 10.0 % (0.0-7.3) H 11/20/17 10:50 Eos % (Auto) 1.7 % (0.0-4.3) 11/20/17 10:50 Baso % (Auto) 1.2 % (0.0-1.8) 11/20/17 10:50 Lymph # 2.4 K/mm3 (1.2-5.4) 11/20/17 10:50 [place] # 0.7 K/mm3 (0.0-0.8) 11/20/17 10:50 Eos # 0.1 K/mm3 (0.0-0.4) 11/20/17 10:50 Baso # 0.1 K/mm3 (0.0-0.1) 11/20/17 10:50 Seg Neutrophils % 51.7 % (40.0-70.0) 11/20/17 10:50 Seg Neutrophils # 3.6 K/mm3 (1.8-7.7) 11/20/17 10:50 PT 13.6 Sec. (12.2-14.9) 11/20/17 10:50 INR 0.99 (0.87-1.13) 11/20/17 10:50 APTT 32.7 Sec. (24.2-36.6) 11/20/17 10:50 POC ABG pH 7.478 (7.35-7.45) H 11/21/17 05:02 POC ABG pCO2 32.3 (35-45) L 11/21/17 05:02 POC ABG pO2 200 (80-105) H 11/21/17 05:02 POC ABG HCO3 24.0 11/21/17 05:02 POC ABG Total CO2 25 11/21/17 05:02 POC ABG O2 Sat 100 11/21/17 05:02 POC ABG Base Excess 0 11/21/17 05:02 FiO2 45 % 11/21/17 05:02 Sodium 138 mmol/L (137-145) 11/20/17 10:50 Potassium 3.8 mmol/L (3.6-5.0) 11/20/17 10:50 Chloride 102.7 mmol/L (98-107) 11/20/17 10:50 Carbon Dioxide 22 mmol/L (22-30) 11/20/17 10:50 Anion Gap 17 mmol/L 11/20/17 10:50 BUN 20 mg/dL (7-17) H 11/20/17 10:50 Creatinine 0.7 mg/dL (0.7-1.2) 11/20/17 10:50 Estimated GFR > 60 ml/min 11/20/17 10:50 BUN/Creatinine Ratio 29 % 11/20/17 10:50 Glucose 102 mg/dL (65-100) H 11/20/17 10:50 POC Glucose 101 (70-105) 11/21/17 00:09 Calcium 9.0 mg/dL (8.4-10.2) 11/20/17 10:50 Total Bilirubin 0.20 mg/dL (0.1-1.2) 11/20/17 10:50 AST 16 units/L (5-40) 11/20/17 10:50 ALT 10 units/L (7-56) 11/20/17 10:50 Alkaline Phosphatase 66 units/L (35-129) 11/20/17 10:50 Total Creatine Kinase 106 units/L (30-135) 11/20/17 10:50 Troponin T < 0.010 ng/mL (0.00-0.029) 11/20/17 10:50 Total Protein 6.9 g/dL (6.3-8.2) 11/20/17 10:50 Albumin 4.1 g/dL (3.9-5) 11/20/17 10:50 Albumin/Globulin Ratio 1.5 % 11/20/17 10:50 HCG, Quant < 2 mIU/mL (0-4) 11/20/17 10:50 Urine Color Yellow (Yellow) 11/20/17 13:30 Urine Turbidity Slightly-cloudy (Clear) 11/20/17 13:30 Urine pH 5.0 (5.0-7.0) 11/20/17 13:30 Ur Specific [place] 1.028 (1.003-1.030) 11/20/17 13:30 Urine Protein 30 mg/dl mg/dL (Negative) 11/20/17 13:30 Urine Glucose (UA) Neg mg/dL (Negative) 11/20/17 13:30 Urine Ketones Tr mg/dL (Negative) 11/20/17 13:30 Urine Blood Neg (Negative) 11/20/17 13:30 Urine Nitrite Neg (Negative) 11/20/17 13:30 Urine Bilirubin Neg (Negative) 11/20/17 13:30 Urine Urobilinogen 4.0 mg/dL (<2.0) 11/20/17 13:30 Ur Leukocyte Esterase Neg (Negative) 11/20/17 13:30 Urine WBC (Auto) 3.0 /HPF (0.0-6.0) 11/20/17 13:30 Urine RBC (Auto) 2.0 /HPF (0.0-6.0) 11/20/17 13:30 U Epithel Cells (Auto) 2.0 /HPF (0-13.0) 11/20/17 13:30 Urine Mucus 2+ /HPF 11/20/17 13:30 CSF Appearance Clear 11/20/17 14:31 CSF Color Colorless 11/20/17 14:31 CSF WBC 1 /mm3 (1-10) 11/20/17 14:31 CSF RBC 8 /mm3 (0-0) 11/20/17 14:31 CSF Seg Neutrophils 0 % (0-6) 11/20/17 14:31 CSF Lymphocytes % 0 % (40-80) 11/20/17 14:31 CSF Reactive Lymphs 0 % 11/20/17 14:31 CSF Monocytes % 0 % (15-45) 11/20/17 14:31 CSF Eosinophils % 0 % 11/20/17 14:31 CSF Basophils 0 % 11/20/17 14:31 CSF Comment No cells seen 11/20/17 14:31 CSF Pathologist Review C 11/20/17 14:31 CSF Glucose 71 mg/dL 11/20/17 14:27 CSF Total Protein 15 mg/dL 11/20/17 14:27 Salicylates < 0.3 mg/dL (2.8-20.0) L 11/20/17 10:50 Urine Opiates Screen Presumptive negative 11/20/17 13:30 Urine Methadone Screen Presumptive negative 11/20/17 13:30 Acetaminophen < 5.0 ug/mL (10.0-30.0) L 11/20/17 10:50 Ur Barbiturates Screen Presumptive negative 11/20/17 13:30 Ur Phencyclidine Scrn Presumptive negative 11/20/17 13:30 Ur Amphetamines Screen Presumptive negative 11/20/17 13:30 U Benzodiazepines Scrn Presumptive negative 11/20/17 13:30 Urine Cocaine Screen Presumptive negative 11/20/17 13:30 U Marijuana (THC) Screen Presumptive negative 11/20/17 13:30 Drugs of Abuse Note Disclamer 11/20/17 13:30 Plasma/Serum Alcohol < 0.01 % (0-0.07) 11/20/17 10:50
[2017-11-22] MEDS: LOVENOX SUB-Q SCH ×2 (12:47→13:13)
[2017-11-22] MEDS: PEPCID PO SCH ×2 (12:48→22:01)
[2017-11-22] MEDS: HALDOL IV PRN (12:48)
[2017-11-22] MEDS: SODIUM CHLORIDE FLUSH SYRINGE 10 ML IV SCH ×2 (12:57→22:01)
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
[2017-11-23] MEDS: TYLENOL PO PRN ×2 (01:22→11:23)
--- NOTE | 2017-11-23 11:17 | Progress Note ---
Assessment and Plan Assessment and plan: (1)Suicide attempt by drug ingestion [address] Safety precaution One-in-one observation (2) Nicotine use disorder Smoking Cessation counseled, need reinforcement (3) Headache (likely due to dugs withdawal) Start Tylenol PRN for headache s/p VDRF (day 3 extubation) O2 sat stable in room air/VS stable DC plan likely to drug rehab Pt is medically cleared to be transferred to rehab DC plan per psych recommendations History Interval history: Pt is laying in prone position in bed, barely oper eyes when named called, reports persistent headache. Hospitalist Physical - Constitutional Vitals: Temp Pulse Resp BP Pulse Ox 97.5 F L 50 L 18 110/65 95 11/23/17 07:10 11/23/17 07:10 11/23/17 07:10 11/23/17 07:10 11/23/17 07:10 General appearance: Present: no acute distress - EENT Eyes: Present: EOM intact - Neck Neck: Present: normal ROM - Cardiovascular Rhythm: regular - Extremities Extremities: No edema Peripheral Pulses: within normal limits - Abdominal General gastrointestinal: soft, non-tender, non-distended - Integumentary Integumentary: Present: warm, dry - Psychiatric Psychiatric: depressed (depressed affect and mood), other (minimal cooperation, answer barely to questions) - Neurologic Neurologic: moves all extremities Results - Labs CBC & Chem 7: 11/20/17 10:50 11/20/17 10:50 Labs: Laboratory Last Values WBC 6.9 K/mm3 (4.5-11.0) 11/20/17 10:50 RBC 4.48 M/mm3 (3.65-5.03) 11/20/17 10:50 Hgb 12.3 gm/dl (10.1-14.3) 11/20/17 10:50 Hct 37.6 % (30.3-42.9) 11/20/17 10:50 MCV 84 fl (79-97) 11/20/17 10:50 MCH 28 pg (28-32) 11/20/17 10:50 MCHC 33 % (30-34) 11/20/17 10:50 RDW 13.7 % (13.2-15.2) 11/20/17 10:50 Plt Count 249 K/mm3 (140-440) 11/20/17 10:50 Lymph % (Auto) 35.4 % (13.4-35.0) H 11/20/17 10:50 [place] % (Auto) 10.0 % (0.0-7.3) H 11/20/17 10:50 Eos % (Auto) 1.7 % (0.0-4.3) 11/20/17 10:50 Baso % (Auto) 1.2 % (0.0-1.8) 11/20/17 10:50 Lymph # 2.4 K/mm3 (1.2-5.4) 11/20/17 10:50 [place] # 0.7 K/mm3 (0.0-0.8) 11/20/17 10:50 Eos # 0.1 K/mm3 (0.0-0.4) 11/20/17 10:50 Baso # 0.1 K/mm3 (0.0-0.1) 11/20/17 10:50 Seg Neutrophils % 51.7 % (40.0-70.0) 11/20/17 10:50 Seg Neutrophils # 3.6 K/mm3 (1.8-7.7) 11/20/17 10:50 PT 13.6 Sec. (12.2-14.9) 11/20/17 10:50 INR 0.99 (0.87-1.13) 11/20/17 10:50 APTT 32.7 Sec. (24.2-36.6) 11/20/17 10:50 POC ABG pH 7.478 (7.35-7.45) H 11/21/17 05:02 POC ABG pCO2 32.3 (35-45) L 11/21/17 05:02 POC ABG pO2 200 (80-105) H 11/21/17 05:02 POC ABG HCO3 24.0 11/21/17 05:02 POC ABG Total CO2 25 11/21/17 05:02 POC ABG O2 Sat 100 11/21/17 05:02 POC ABG Base Excess 0 11/21/17 05:02 FiO2 45 % 11/21/17 05:02 Sodium 138 mmol/L (137-145) 11/20/17 10:50 Potassium 3.8 mmol/L (3.6-5.0) 11/20/17 10:50 Chloride 102.7 mmol/L (98-107) 11/20/17 10:50 Carbon Dioxide 22 mmol/L (22-30) 11/20/17 10:50 Anion Gap 17 mmol/L 11/20/17 10:50 BUN 20 mg/dL (7-17) H 11/20/17 10:50 Creatinine 0.7 mg/dL (0.7-1.2) 11/20/17 10:50 Estimated GFR > 60 ml/min 11/20/17 10:50 BUN/Creatinine Ratio 29 % 11/20/17 10:50 Glucose 102 mg/dL (65-100) H 11/20/17 10:50 POC Glucose 101 (70-105) 11/21/17 00:09 Calcium 9.0 mg/dL (8.4-10.2) 11/20/17 10:50 Total Bilirubin 0.20 mg/dL (0.1-1.2) 11/20/17 10:50 AST 16 units/L (5-40) 11/20/17 10:50 ALT 10 units/L (7-56) 11/20/17 10:50 Alkaline Phosphatase 66 units/L (35-129) 11/20/17 10:50 Total Creatine Kinase 106 units/L (30-135) 11/20/17 10:50 Troponin T < 0.010 ng/mL (0.00-0.029) 11/20/17 10:50 Total Protein 6.9 g/dL (6.3-8.2) 11/20/17 10:50 Albumin 4.1 g/dL (3.9-5) 11/20/17 10:50 Albumin/Globulin Ratio 1.5 % 11/20/17 10:50 HCG, Quant < 2 mIU/mL (0-4) 11/20/17 10:50 Urine Color Yellow (Yellow) 11/20/17 13:30 Urine Turbidity Slightly-cloudy (Clear) 11/20/17 13:30 Urine pH 5.0 (5.0-7.0) 11/20/17 13:30 Ur Specific [place] 1.028 (1.003-1.030) 11/20/17 13:30 Urine Protein 30 mg/dl mg/dL (Negative) 11/20/17 13:30 Urine Glucose (UA) Neg mg/dL (Negative) 11/20/17 13:30 Urine Ketones Tr mg/dL (Negative) 11/20/17 13:30 Urine Blood Neg (Negative) 11/20/17 13:30 Urine Nitrite Neg (Negative) 11/20/17 13:30 Urine Bilirubin Neg (Negative) 11/20/17 13:30 Urine Urobilinogen 4.0 mg/dL (<2.0) 11/20/17 13:30 Ur Leukocyte Esterase Neg (Negative) 11/20/17 13:30 Urine WBC (Auto) 3.0 /HPF (0.0-6.0) 11/20/17 13:30 Urine RBC (Auto) 2.0 /HPF (0.0-6.0) 11/20/17 13:30 U Epithel Cells (Auto) 2.0 /HPF (0-13.0) 11/20/17 13:30 Urine Mucus 2+ /HPF 11/20/17 13:30 CSF Appearance Clear 11/20/17 14:31 CSF Color Colorless 11/20/17 14:31 CSF WBC 1 /mm3 (1-10) 11/20/17 14:31 CSF RBC 8 /mm3 (0-0) 11/20/17 14:31 CSF Seg Neutrophils 0 % (0-6) 11/20/17 14:31 CSF Lymphocytes % 0 % (40-80) 11/20/17 14:31 CSF Reactive Lymphs 0 % 11/20/17 14:31 CSF Monocytes % 0 % (15-45) 11/20/17 14:31 CSF Eosinophils % 0 % 11/20/17 14:31 CSF Basophils 0 % 11/20/17 14:31 CSF Comment No cells seen 11/20/17 14:31 CSF Pathologist Review C 11/20/17 14:31 CSF Glucose 71 mg/dL 11/20/17 14:27 CSF Total Protein 15 mg/dL 11/20/17 14:27 Salicylates < 0.3 mg/dL (2.8-20.0) L 11/20/17 10:50 Urine Opiates Screen Presumptive negative 11/20/17 13:30 Urine Methadone Screen Presumptive negative 11/20/17 13:30 Acetaminophen < 5.0 ug/mL (10.0-30.0) L 11/20/17 10:50 Ur Barbiturates Screen Presumptive negative 11/20/17 13:30 Ur Phencyclidine Scrn Presumptive negative 11/20/17 13:30 Ur Amphetamines Screen Presumptive negative 11/20/17 13:30 U Benzodiazepines Scrn Presumptive negative 11/20/17 13:30 Urine Cocaine Screen Presumptive negative 11/20/17 13:30 U Marijuana (THC) Screen Presumptive negative 11/20/17 13:30 Drugs of Abuse Note Disclamer 11/20/17 13:30 Plasma/Serum Alcohol < 0.01 % (0-0.07) 11/20/17 10:50
[2017-11-23] MEDS: PEPCID PO SCH (11:23)
[2017-11-23] MEDS: LOVENOX SUB-Q SCH (11:25)
[2017-11-23] MEDS: SODIUM CHLORIDE FLUSH SYRINGE 10 ML IV SCH (11:25)
--- NOTE | 2017-11-23 13:19 | Consultation ---
PULMONARY CRITICAL CARE CONSULTATION CONSULTING PHYSICIAN: Dr. Amaya. REASON FOR CONSULTATION: Acute respiratory failure, status post drug overdose. CHIEF COMPLAINT AND HISTORY OF PRESENT ILLNESS: The patient is a 32-year-old female with past medical history significant unknown, brought into the ER after being found down in the parking lot, unclear how long she had been there. As per EMS, the patient had been using GHB. This was information received from other people in the parking lot. She was not hypoglycemic. She did not respond to Narcan. She was brought into the Emergency Room. In the ER, she had to be physically restrained and then ultimately required intubation. Post-intubation, the code trauma was done. She was transferred to the Intensive Care Unit on the ventilator where I stopped by to see her. When I stopped by to see her, she was beginning to wake up. She was on a spontaneous breathing trial and actually doing pretty decently. I do not have any history of vomiting or overt aspiration. She is described as a current everyday smoker, unable to quantify. That really is as much of the history of presentation as I have. PAST MEDICAL HISTORY: Reportedly history of nephrolithiasis and history of STD exposure. PAST SURGICAL HISTORY: She has had left wrist surgery. MEDICATIONS: She was on at the time I stopped by to see were reviewed. Pertinent medications include the following: Haldol 5 mg IV q.6 hours p.r.n. agitation, Geodon 20 mg IM q.4 hours p.r.n. agitation. ALLERGIES: No known drug allergies. Please note, she was also I believe on a Versed drip. DIET: Obese lady, acute weight loss or gain history is unknown. FAMILY AND SOCIAL HISTORY: Unclear and unable to obtain except to say that she does use alcohol. She used tobacco and she uses illicit drug according to the onlookers at the time that she was found down. REVIEW OF SYSTEMS: Unobtainable secondary to the patient's medical and mental condition. Since she has been in the hospital, no gross hematochezia or melena, no gross hematuria, no hematemesis, no hemoptysis, no witnessed seizures. PHYSICAL EXAMINATION: VITAL SIGNS: At presentation, she was hypothermic, temperature 94.8 degrees Fahrenheit, pulse 96, respiratory rate was 12, described as shallow; blood pressure 139/89, and oxygen sats were 97%, inspired oxygen concentration was not recorded. At the time I saw her, she was on mechanical ventilator. I believe, tidal volume 500, PEEP of 6 and rate of 18. 40% FiO2. HEAD, EYES, EARS, NOSE AND THROAT: She is anicteric. No conjunctival erythema. Endotracheal tube is in place, taped at the lips around 23 cm. Grossly, no palpable lymph nodes in the supraclavicular or submandibular lymph node chains. No gross jugular venous distention, no thyromegaly. LUNGS: Auscultation of both lung lora is essentially unremarkable. Lungs are clear bilaterally with good bilateral air movement. HEART: Heart sounds 1 and 2 are heard, regular rate and rhythm at time of my evaluation. No rubs or murmurs. ABDOMEN: Soft, full, bowel sounds are positive, nontender, no palpable hepatosplenomegaly. EXTREMITIES: Without overt digital clubbing, cyanosis, or pedal edema. Dorsalis pedis pulses were palpable bilaterally. NEUROLOGIC: Pupils were equal, round, about 2-3 mm, reactive to light. Extraocular muscle movements appeared intact. She had spontaneous movements to all 4 extremities. SKIN: The skin was of poor turgor without cellulitis or overt rash. LABORATORY DATA: From my review: Admission white cell count 6900, hemoglobin was 12.3, hematocrit was 37.6, and platelet count 249. Arterial blood gas at presentation showed a pH of 7.38, pCO2 of 51, pO2 of 500 on 100% FiO2. INR was 0.99. Serum sodium was 138, potassium 3.8, chloride 103, bicarbonate 22, BUN 20, creatinine 0.7, and glucose 102. Liver function tests were within normal limits. Urinalysis was unremarkable, negative for nitrites and leukocyte esterase. Lumbar puncture was done. CSF glucose was 71. Total protein was within normal limits and only 1 white cell. Aspirin, Tylenol, alcohol levels were undetectable. Urine drug screen was presumptive negative. Blood cultures no growth to date. CSF, no growth to date. Tracheal aspirate, no growth to date. She had a CT scan done of the cervical spine as well as a CT of the head. CT of the cervical spine was unremarkable. CT of the head, no acute intracranial abnormality. She also had a chest x-ray done. I did review the chest x-ray as well as the radiologist's interpretation. Presentation chest x-ray was an unremarkable chest x-ray. Post-intubation, ET tube tip is at the level of the aortic knob. No gross pneumothorax, no gross bony fracture, no cardiomegaly. ASSESSMENT: 1. Acute respiratory failure status post drug overdose, presumably GHB. 2. Drug overdose, presumably GHB. 3. Acute encephalopathy. 4. Hypothermia. 5. History of illicit drug use. 6. Obesity. PLAN: She is doing well on the spontaneous breathing trial, a little difficult to control at times from an emotional/agitation standpoint, she is actually still in restraints. I will go ahead and begin some Seroquel, so that we can spare benzodiazepines and hopefully get a better control of her. She will be started on GI prophylaxis as well as DVT prophylaxis. The set rate will be reduced to 12. I will start some p.r.n. Haldol. If she passes a spontaneous breathing trial, the plan will be to extubate her. Otherwise, enteral nutrition will be started. Flu and pneumonia vaccination will be addressed per protocol. Thank you very much for the consult. I should mention further interventions will be per the attending for now. She is critically ill, on life-sustaining interventions including mechanical ventilatory support and at risk for further decompensation in the respiratory and neurologic systems including the risk of . At this time, we spent about 40-45 minutes of critical care time without overlap excluding any procedural time that may be necessary. JOB# [id number] RENATA/KRISTEN THOMPSON
--- NOTE | 2017-11-23 13:44 | Progress Note ---
Assessment and Plan Acute respiratory failure status post drug overdose, presumably GHB. Drug overdose, presumably GHB. Acute encephalopathy. Hypothermia. History of illicit drug use. Obesity. - complete psych evaluation - prn anxiolytics - drug abuse and tobacco abuse abstinence counselled - d/c planning per attending .... we will see prn at this point Subjective Date of service: 11/23/17 Principal diagnosis: Acute Respiratory Failure; Drug OD (GHB) Interval history: Patient is seen today for: Acute Respiratory Failure; Drug OD (GHB) Seen and examined at bedside; 24hour events reviewed; nursing and respiratory care staff consulted; no adverse overnight events reported to me; resting peacefully; on room air; No N/V/F/C Objective Vital Signs - 12hr 11/23/17 11/23/17 07:10 11:47 Temperature 97.5 F L 98.4 F Pulse Rate 50 L 62 Respiratory 18 20 Rate Blood Pressure 110/65 104/58 O2 Sat by Pulse 95 97 Oximetry Constitutional: no acute distress, other (young female, normocephalic and atraumatic) Eyes: non-icteric ENT: oropharynx moist Neck: supple, no lymphadenopathy, no JVD Effort: normal Ascultation: Bilateral: clear Percussion: Bilateral: not dull Cardiovascular: regular rate and rhythm Gastrointestinal: normoactive bowel sounds, soft, non-tender, non-distended Integumentary: normal Extremities: no cyanosis, no edema, pink and warm, pulses normal Neurologic: normal mental status, non-focal exam, pupils equal and round, motor strength normal and Psychiatric: mood appropriate, affect normal CBC and BMP: 11/20/17 10:50 11/20/17 10:50 ABG, PT/INR, D-dimer: ABG POC ABG pH 7.478 (7.35-7.45) H 11/21/17 05:02 POC ABG pCO2 32.3 (35-45) L 11/21/17 05:02 POC ABG pO2 200 (80-105) H 11/21/17 05:02 POC ABG HCO3 24.0 11/21/17 05:02 POC ABG Total CO2 25 11/21/17 05:02 POC ABG O2 Sat 100 11/21/17 05:02 PT/INR, D-dimer PT 13.6 Sec. (12.2-14.9) 11/20/17 10:50 INR 0.99 (0.87-1.13) 11/20/17 10:50 Abnormal lab findings: Abnormal Labs 11/20/17 11/20/17 11/20/17 10:50 10:50 10:50 Lymph % (Auto) 35.4 H [place] % (Auto) 10.0 H POC ABG pH POC ABG pCO2 POC ABG pO2 BUN 20 H Glucose 102 H Salicylates < 0.3 L Acetaminophen 11/20/17 11/20/17 11/21/17 10:50 12:55 05:02 Lymph % (Auto) [place] % (Auto) POC ABG pH 7.478 H POC ABG pCO2 51.3 H 32.3 L POC ABG pO2 500 H 200 H BUN Glucose Salicylates Acetaminophen < 5.0 L Allied health notes reviewed: nursing
--- NOTE | 2017-11-23 23:32 | Progress Note ---
Subjective - Reason for Consult Consult date: 11/23/17 Reason for consult: Psychiatric Follow-up Evaluation - Chief Complaint Chief complaint: "I'm okay" Patient is a 32 year old female seen for psychiatric evaluation on the medical floor. She was found unresponsive in a parking lot. She was subsequently intubated. There was a concern with GHB use. Per the record: [Apparently, as per EMS, patient had been using GHB. This is received from collateral information from other people in the parking lot. ] She denies use of alcohol or illicit substances. Patient is seen laying down in the bed without any clothes. Today patient presents guarded and evasive during the assessment. At times patient is easily irritable. She denies SI/HI's , A/VH's , and delusions. Mental Status Exam - Vital signs Last Vital Signs Temp 98.4 F 11/23/17 11:47 Pulse 85 11/23/17 17:44 Resp 20 11/23/17 17:44 BP 106/59 11/23/17 17:44 Pulse Ox 97 11/23/17 17:44 - Exam Narrative exam: Mental Status Exam General Appearance: Poorly groomed- patient is without clothes Eye Contact: Poor Orientation: Alert and oriented x 3 ( person, place, and time) Attitude/Behavior: Guarded, evasive Sensorium: Distracted Psychomotor & Musculoskeletal Activity: Laying in bed Mood: "I'm okay" Affect: Constricted Speech/Language: Normal rate and tone Thought Processes: Circumstantial Thought Content: Reality oriented; impoverished Perception: Patient denies A/V/T hallucinations Concentration/Attention: Impaired Suicidal Ideations/Plan: Patient denies Homicidal Ideations/Plan: Patient denies Judgment: Poor Insight: Poor Assessment and Plan Impression: PPHx unknown. Today patient presents guarded and evasive during the assessment. At times patient is easily irritable. She denies SI/HI, A/VH, and delusions. She denies SI/HI's, A/VH's, and delusions. DDx: Sedative, Hypnotic and Anxiolytic Use Disorder Cannot rule out suicide attempt at this time. Although, she denies it. Recommendation/Plan : 1. Continue 1013 and reevaluate in 24 hours to determine consistency in statements 2. She was encouraged to speak with the nurse and hospitalist about her neck pain. 3. Will monitor mood, sleep, appetite, compliance, and side effects.
[2017-11-24] MEDS: PEPCID PO SCH ×3 (00:16→22:00)
[2017-11-24] MEDS: SODIUM CHLORIDE FLUSH SYRINGE 10 ML IV SCH ×3 (00:16→22:00)
[2017-11-24] MEDS: LOVENOX SUB-Q SCH (09:52)
--- NOTE | 2017-11-24 13:07 | Progress Note ---
Assessment and Plan Assessment and plan: Suicide attempt -Continue 1013 -Psychiatry following Respiratory failure secondary to drug overdose -Status post extubation -Patient is saturating well on room air Toxic encephalopathy secondary to drug overdose, presumably GHB -Resolved Tobacco abuse -Patient counseled on cessation Disposition: Patient is medically cleared for discharge, await psychiatry recommendation History Interval history: Patient complained of neck pain Hospitalist Physical - Constitutional Vitals: Temp Pulse Resp BP Pulse Ox 98.6 F 81 20 115/72 97 11/24/17 12:11 11/24/17 12:11 11/24/17 12:11 11/24/17 12:11 11/24/17 12:11 General appearance: Present: no acute distress - EENT Eyes: Present: PERRL, EOM intact ENT: hearing intact, clear oral mucosa - Neck Neck: Present: supple - Respiratory Respiratory effort: normal Respiratory: bilateral: CTA - Cardiovascular Rhythm: regular Heart Sounds: Present: S1 & S2 - Extremities Extremities: No edema - Abdominal General gastrointestinal: non-tender, normal bowel sounds - Neurologic Neurologic: CNII-XII intact Results - Labs CBC & Chem 7: 11/20/17 10:50 11/20/17 10:50 Labs: Laboratory Last Values WBC 6.9 K/mm3 (4.5-11.0) 11/20/17 10:50 RBC 4.48 M/mm3 (3.65-5.03) 11/20/17 10:50 Hgb 12.3 gm/dl (10.1-14.3) 11/20/17 10:50 Hct 37.6 % (30.3-42.9) 11/20/17 10:50 MCV 84 fl (79-97) 11/20/17 10:50 MCH 28 pg (28-32) 11/20/17 10:50 MCHC 33 % (30-34) 11/20/17 10:50 RDW 13.7 % (13.2-15.2) 11/20/17 10:50 Plt Count 249 K/mm3 (140-440) 11/20/17 10:50 Lymph % (Auto) 35.4 % (13.4-35.0) H 11/20/17 10:50 [place] % (Auto) 10.0 % (0.0-7.3) H 11/20/17 10:50 Eos % (Auto) 1.7 % (0.0-4.3) 11/20/17 10:50 Baso % (Auto) 1.2 % (0.0-1.8) 11/20/17 10:50 Lymph # 2.4 K/mm3 (1.2-5.4) 11/20/17 10:50 [place] # 0.7 K/mm3 (0.0-0.8) 11/20/17 10:50 Eos # 0.1 K/mm3 (0.0-0.4) 11/20/17 10:50 Baso # 0.1 K/mm3 (0.0-0.1) 11/20/17 10:50 Seg Neutrophils % 51.7 % (40.0-70.0) 11/20/17 10:50 Seg Neutrophils # 3.6 K/mm3 (1.8-7.7) 11/20/17 10:50 PT 13.6 Sec. (12.2-14.9) 11/20/17 10:50 INR 0.99 (0.87-1.13) 11/20/17 10:50 APTT 32.7 Sec. (24.2-36.6) 11/20/17 10:50 POC ABG pH 7.478 (7.35-7.45) H 11/21/17 05:02 POC ABG pCO2 32.3 (35-45) L 11/21/17 05:02 POC ABG pO2 200 (80-105) H 11/21/17 05:02 POC ABG HCO3 24.0 11/21/17 05:02 POC ABG Total CO2 25 11/21/17 05:02 POC ABG O2 Sat 100 11/21/17 05:02 POC ABG Base Excess 0 11/21/17 05:02 FiO2 45 % 11/21/17 05:02 Sodium 138 mmol/L (137-145) 11/20/17 10:50 Potassium 3.8 mmol/L (3.6-5.0) 11/20/17 10:50 Chloride 102.7 mmol/L (98-107) 11/20/17 10:50 Carbon Dioxide 22 mmol/L (22-30) 11/20/17 10:50 Anion Gap 17 mmol/L 11/20/17 10:50 BUN 20 mg/dL (7-17) H 11/20/17 10:50 Creatinine 0.7 mg/dL (0.7-1.2) 11/20/17 10:50 Estimated GFR > 60 ml/min 11/20/17 10:50 BUN/Creatinine Ratio 29 % 11/20/17 10:50 Glucose 102 mg/dL (65-100) H 11/20/17 10:50 POC Glucose 101 (70-105) 11/21/17 00:09 Calcium 9.0 mg/dL (8.4-10.2) 11/20/17 10:50 Total Bilirubin 0.20 mg/dL (0.1-1.2) 11/20/17 10:50 AST 16 units/L (5-40) 11/20/17 10:50 ALT 10 units/L (7-56) 11/20/17 10:50 Alkaline Phosphatase 66 units/L (35-129) 11/20/17 10:50 Total Creatine Kinase 106 units/L (30-135) 11/20/17 10:50 Troponin T < 0.010 ng/mL (0.00-0.029) 11/20/17 10:50 Total Protein 6.9 g/dL (6.3-8.2) 11/20/17 10:50 Albumin 4.1 g/dL (3.9-5) 11/20/17 10:50 Albumin/Globulin Ratio 1.5 % 11/20/17 10:50 HCG, Quant < 2 mIU/mL (0-4) 11/20/17 10:50 Urine Color Yellow (Yellow) 11/20/17 13:30 Urine Turbidity Slightly-cloudy (Clear) 11/20/17 13:30 Urine pH 5.0 (5.0-7.0) 11/20/17 13:30 Ur Specific [place] 1.028 (1.003-1.030) 11/20/17 13:30 Urine Protein 30 mg/dl mg/dL (Negative) 11/20/17 13:30 Urine Glucose (UA) Neg mg/dL (Negative) 11/20/17 13:30 Urine Ketones Tr mg/dL (Negative) 11/20/17 13:30 Urine Blood Neg (Negative) 11/20/17 13:30 Urine Nitrite Neg (Negative) 11/20/17 13:30 Urine Bilirubin Neg (Negative) 11/20/17 13:30 Urine Urobilinogen 4.0 mg/dL (<2.0) 11/20/17 13:30 Ur Leukocyte Esterase Neg (Negative) 11/20/17 13:30 Urine WBC (Auto) 3.0 /HPF (0.0-6.0) 11/20/17 13:30 Urine RBC (Auto) 2.0 /HPF (0.0-6.0) 11/20/17 13:30 U Epithel Cells (Auto) 2.0 /HPF (0-13.0) 11/20/17 13:30 Urine Mucus 2+ /HPF 11/20/17 13:30 CSF Appearance Clear 11/20/17 14:31 CSF Color Colorless 11/20/17 14:31 CSF WBC 1 /mm3 (1-10) 11/20/17 14:31 CSF RBC 8 /mm3 (0-0) 11/20/17 14:31 CSF Seg Neutrophils 0 % (0-6) 11/20/17 14:31 CSF Lymphocytes % 0 % (40-80) 11/20/17 14:31 CSF Reactive Lymphs 0 % 11/20/17 14:31 CSF Monocytes % 0 % (15-45) 11/20/17 14:31 CSF Eosinophils % 0 % 11/20/17 14:31 CSF Basophils 0 % 11/20/17 14:31 CSF Comment No cells seen 11/20/17 14:31 CSF Pathologist Review C 11/20/17 14:31 CSF Glucose 71 mg/dL 11/20/17 14:27 CSF Total Protein 15 mg/dL 11/20/17 14:27 Salicylates < 0.3 mg/dL (2.8-20.0) L 11/20/17 10:50 Urine Opiates Screen Presumptive negative 11/20/17 13:30 Urine Methadone Screen Presumptive negative 11/20/17 13:30 Acetaminophen < 5.0 ug/mL (10.0-30.0) L 11/20/17 10:50 Ur Barbiturates Screen Presumptive negative 11/20/17 13:30 Ur Phencyclidine Scrn Presumptive negative 11/20/17 13:30 Ur Amphetamines Screen Presumptive negative 11/20/17 13:30 U Benzodiazepines Scrn Presumptive negative 11/20/17 13:30 Urine Cocaine Screen Presumptive negative 11/20/17 13:30 U Marijuana (THC) Screen Presumptive negative 11/20/17 13:30 Drugs of Abuse Note Disclamer 11/20/17 13:30 Plasma/Serum Alcohol < 0.01 % (0-0.07) 11/20/17 10:50
[2017-11-24] MEDS: HALDOL IM PRN (19:10)
[2017-11-25] MEDS: HALDOL IM PRN (09:48)
[2017-11-25] MEDS: SODIUM CHLORIDE FLUSH SYRINGE 10 ML IV SCH ×2 (09:52→22:00)
[2017-11-25] MEDS: PEPCID PO SCH ×2 (09:52→22:00)
[2017-11-25] MEDS: LOVENOX SUB-Q SCH (09:52)
--- NOTE | 2017-11-25 12:24 | Progress Note ---
Assessment and Plan Assessment and plan: Suicidal attempt -Continue 1013 -Psychiatry following Respiratory failure secondary to drug overdose -Status post extubation -Patient is saturating well on room air Toxic encephalopathy secondary to drug overdose, presumably GHB -Resolved Tobacco abuse -Patient counseled on cessation Disposition: Patient is medically cleared for discharge, await psychiatry recommendation History Interval history: Patient continues to state that she wants to go home. Otherwise, no new complaints Hospitalist Physical - Constitutional Vitals: Temp Pulse Resp BP Pulse Ox 98.5 F 66 18 99/63 96 11/25/17 06:10 11/25/17 06:10 11/25/17 06:10 11/25/17 06:10 11/25/17 06:10 General appearance: Present: no acute distress - EENT Eyes: Present: PERRL, EOM intact ENT: hearing intact, clear oral mucosa - Neck Neck: Present: supple - Respiratory Respiratory effort: normal Respiratory: bilateral: CTA - Cardiovascular Rhythm: regular Heart Sounds: Present: S1 & S2 - Extremities Extremities: No edema - Abdominal General gastrointestinal: soft, non-tender, normal bowel sounds - Neurologic Neurologic: CNII-XII intact Results - Labs CBC & Chem 7: 11/20/17 10:50 11/20/17 10:50 Labs: Laboratory Last Values WBC 6.9 K/mm3 (4.5-11.0) 11/20/17 10:50 RBC 4.48 M/mm3 (3.65-5.03) 11/20/17 10:50 Hgb 12.3 gm/dl (10.1-14.3) 11/20/17 10:50 Hct 37.6 % (30.3-42.9) 11/20/17 10:50 MCV 84 fl (79-97) 11/20/17 10:50 MCH 28 pg (28-32) 11/20/17 10:50 MCHC 33 % (30-34) 11/20/17 10:50 RDW 13.7 % (13.2-15.2) 11/20/17 10:50 Plt Count 249 K/mm3 (140-440) 11/20/17 10:50 Lymph % (Auto) 35.4 % (13.4-35.0) H 11/20/17 10:50 [place] % (Auto) 10.0 % (0.0-7.3) H 11/20/17 10:50 Eos % (Auto) 1.7 % (0.0-4.3) 11/20/17 10:50 Baso % (Auto) 1.2 % (0.0-1.8) 11/20/17 10:50 Lymph # 2.4 K/mm3 (1.2-5.4) 11/20/17 10:50 [place] # 0.7 K/mm3 (0.0-0.8) 11/20/17 10:50 Eos # 0.1 K/mm3 (0.0-0.4) 11/20/17 10:50 Baso # 0.1 K/mm3 (0.0-0.1) 11/20/17 10:50 Seg Neutrophils % 51.7 % (40.0-70.0) 11/20/17 10:50 Seg Neutrophils # 3.6 K/mm3 (1.8-7.7) 11/20/17 10:50 PT 13.6 Sec. (12.2-14.9) 11/20/17 10:50 INR 0.99 (0.87-1.13) 11/20/17 10:50 APTT 32.7 Sec. (24.2-36.6) 11/20/17 10:50 POC ABG pH 7.478 (7.35-7.45) H 11/21/17 05:02 POC ABG pCO2 32.3 (35-45) L 11/21/17 05:02 POC ABG pO2 200 (80-105) H 11/21/17 05:02 POC ABG HCO3 24.0 11/21/17 05:02 POC ABG Total CO2 25 11/21/17 05:02 POC ABG O2 Sat 100 11/21/17 05:02 POC ABG Base Excess 0 11/21/17 05:02 FiO2 45 % 11/21/17 05:02 Sodium 138 mmol/L (137-145) 11/20/17 10:50 Potassium 3.8 mmol/L (3.6-5.0) 11/20/17 10:50 Chloride 102.7 mmol/L (98-107) 11/20/17 10:50 Carbon Dioxide 22 mmol/L (22-30) 11/20/17 10:50 Anion Gap 17 mmol/L 11/20/17 10:50 BUN 20 mg/dL (7-17) H 11/20/17 10:50 Creatinine 0.7 mg/dL (0.7-1.2) 11/20/17 10:50 Estimated GFR > 60 ml/min 11/20/17 10:50 BUN/Creatinine Ratio 29 % 11/20/17 10:50 Glucose 102 mg/dL (65-100) H 11/20/17 10:50 POC Glucose 101 (70-105) 11/21/17 00:09 Calcium 9.0 mg/dL (8.4-10.2) 11/20/17 10:50 Total Bilirubin 0.20 mg/dL (0.1-1.2) 11/20/17 10:50 AST 16 units/L (5-40) 11/20/17 10:50 ALT 10 units/L (7-56) 11/20/17 10:50 Alkaline Phosphatase 66 units/L (35-129) 11/20/17 10:50 Total Creatine Kinase 106 units/L (30-135) 11/20/17 10:50 Troponin T < 0.010 ng/mL (0.00-0.029) 11/20/17 10:50 Total Protein 6.9 g/dL (6.3-8.2) 11/20/17 10:50 Albumin 4.1 g/dL (3.9-5) 11/20/17 10:50 Albumin/Globulin Ratio 1.5 % 11/20/17 10:50 HCG, Quant < 2 mIU/mL (0-4) 11/20/17 10:50 Urine Color Yellow (Yellow) 11/20/17 13:30 Urine Turbidity Slightly-cloudy (Clear) 11/20/17 13:30 Urine pH 5.0 (5.0-7.0) 11/20/17 13:30 Ur Specific [place] 1.028 (1.003-1.030) 11/20/17 13:30 Urine Protein 30 mg/dl mg/dL (Negative) 11/20/17 13:30 Urine Glucose (UA) Neg mg/dL (Negative) 11/20/17 13:30 Urine Ketones Tr mg/dL (Negative) 11/20/17 13:30 Urine Blood Neg (Negative) 11/20/17 13:30 Urine Nitrite Neg (Negative) 11/20/17 13:30 Urine Bilirubin Neg (Negative) 11/20/17 13:30 Urine Urobilinogen 4.0 mg/dL (<2.0) 11/20/17 13:30 Ur Leukocyte Esterase Neg (Negative) 11/20/17 13:30 Urine WBC (Auto) 3.0 /HPF (0.0-6.0) 11/20/17 13:30 Urine RBC (Auto) 2.0 /HPF (0.0-6.0) 11/20/17 13:30 U Epithel Cells (Auto) 2.0 /HPF (0-13.0) 11/20/17 13:30 Urine Mucus 2+ /HPF 11/20/17 13:30 CSF Appearance Clear 11/20/17 14:31 CSF Color Colorless 11/20/17 14:31 CSF WBC 1 /mm3 (1-10) 11/20/17 14:31 CSF RBC 8 /mm3 (0-0) 11/20/17 14:31 CSF Seg Neutrophils 0 % (0-6) 11/20/17 14:31 CSF Lymphocytes % 0 % (40-80) 11/20/17 14:31 CSF Reactive Lymphs 0 % 11/20/17 14:31 CSF Monocytes % 0 % (15-45) 11/20/17 14:31 CSF Eosinophils % 0 % 11/20/17 14:31 CSF Basophils 0 % 11/20/17 14:31 CSF Comment No cells seen 11/20/17 14:31 CSF Pathologist Review C 11/20/17 14:31 CSF Glucose 71 mg/dL 11/20/17 14:27 CSF Total Protein 15 mg/dL 11/20/17 14:27 Salicylates < 0.3 mg/dL (2.8-20.0) L 11/20/17 10:50 Urine Opiates Screen Presumptive negative 11/20/17 13:30 Urine Methadone Screen Presumptive negative 11/20/17 13:30 Acetaminophen < 5.0 ug/mL (10.0-30.0) L 11/20/17 10:50 Ur Barbiturates Screen Presumptive negative 11/20/17 13:30 Ur Phencyclidine Scrn Presumptive negative 11/20/17 13:30 Ur Amphetamines Screen Presumptive negative 11/20/17 13:30 U Benzodiazepines Scrn Presumptive negative 11/20/17 13:30 Urine Cocaine Screen Presumptive negative 11/20/17 13:30 U Marijuana (THC) Screen Presumptive negative 11/20/17 13:30 Drugs of Abuse Note Disclamer 11/20/17 13:30 Plasma/Serum Alcohol < 0.01 % (0-0.07) 11/20/17 10:50
--- NOTE | 2017-11-25 14:52 | Progress Note ---
Subjective - Reason for Consult Consult date: 11/25/17 Reason for consult: Psychiatry Follow-up - Chief Complaint Chief complaint: "I didn't do anything wrong" Patient is a 32 year old female seen for psychiatric evaluation on the medical floor. She was found unresponsive in a parking lot. She was subsequently intubated. There was a concern with GHB use. Today the patient is irritable during the assessment. She stated, I was at a social event and the next thing I know I'm at the hospital." She was evasive throughout the interview. She did deny overdosing, taking GHB, and a mental hx dx. She denies SI/HI's and AVH's. Mental Status Exam - Vital signs Last Vital Signs Temp 98.5 F 11/25/17 06:10 Pulse 66 11/25/17 06:10 Resp 18 11/25/17 06:10 BP 99/63 11/25/17 06:10 Pulse Ox 96 11/25/17 06:10 - Exam Narrative exam: MSE: Appearance: semi dressed in hospital gown Behavior: regular eye contact Speech: regular rate and loud tone Mood: "not good" irritable Affect: congruent to mood Thought Process: circumstantial Thought Content: denies SI/HI's and AVH's Motor Activity: lying in bed Cognition: A/O x 3 Insight: variable Judgment: variable Assessment and Plan Impression: R/O overdose. Today the patient is irritable during the assessment. Cannot rule out suicide attempt at this time. Although, she denies it. Recommendation/Plan: Continue 1013 and gather collateral information to determine proper treatment and dispo. Continue Haldol 5 mg IM Q6hrs PRN for acute agitation.
[2017-11-26] MEDS: PEPCID PO SCH ×2 (10:54→22:23)
[2017-11-26] MEDS: SODIUM CHLORIDE FLUSH SYRINGE 10 ML IV SCH ×2 (10:54→22:23)
[2017-11-26] MEDS: LOVENOX SUB-Q SCH (10:54)
--- NOTE | 2017-11-26 11:37 | Progress Note ---
Assessment and Plan Suicidal attempt -Continue 1013 -Psychiatry following Respiratory failure secondary to drug overdose -Status post extubation -Patient is saturating well on room air Toxic encephalopathy secondary to drug overdose, presumably GHB -Resolved Tobacco abuse -Patient counseled on cessation Disposition: Patient is medically cleared for discharge, await psychiatry recommendation Hospitalist Physical General appearance: Present: no acute distress - EENT Eyes: Present: PERRL, EOM intact ENT: hearing intact, clear oral mucosa - Neck Neck: Present: supple - Respiratory Respiratory effort: normal Respiratory: bilateral: CTA - Cardiovascular Rhythm: regular Heart Sounds: Present: S1 & S2 - Extremities Extremities: No edema - Abdominal General gastrointestinal: soft, non-tender, normal bowel sounds - Neurologic Neurologic: CNII-XII intact Subjective Date of service: 11/26/17 Principal diagnosis: Acute Respiratory Failure; Drug OD (GHB) Interval history: Patient continues to state that she wants to go home. denies any chest pain or SOB Objective - Constitutional Vitals: Vital Signs - 12hr 11/26/17 11/26/17 11/26/17 05:27 10:13 11:31 Temperature 98.1 F 98.6 F Pulse Rate 59 L 63 Respiratory 19 Rate Blood Pressure 104/61 110/63 O2 Sat by Pulse 96 98 Oximetry - Labs CBC & Chem 7: 11/20/17 10:50 11/20/17 10:50
--- NOTE | 2017-11-26 14:59 | Progress Note ---
Subjective - Reason for Consult Consult date: 11/26/17 Reason for consult: Psychiatric Follow-up Evaluation - Chief Complaint Chief complaint: "I need to be discharged" Patient is a 32 year old female seen for a psychiatric evaluation on the medical floor. She was found unresponsive in a parking lot. She was subsequently intubated. There was a concern with GHB use. Today the patient is extremely anxious and irritable during the assessment. Patient is demanding discharge. She states, " I do not want to be given anything. I need to be discharged immediately." Mood appears labile. She reported, " I was at a social event and the next thing I know I'm at the hospital." She continues to be evasive throughout the interview. She reports decrease sleep and appetite. She denies overdosing, taking GHB, and a mental hx dx. She denies SI/HI's, A/VH's, and delusions. Mental Status Exam - Vital signs Last Vital Signs Temp 98.6 F 11/26/17 10:13 Pulse 63 11/26/17 11:31 Resp 19 11/26/17 05:27 BP 110/63 11/26/17 11:31 Pulse Ox 98 11/26/17 11:31 - Exam Narrative exam: Mental Status Exam General Appearance: Casually dressed- hospital gown Eye Contact: Intermittent Orientation: Alert and oriented x 3 ( person, place, and time) Attitude/Behavior: Defensive, guarded, evasive Sensorium: Distracted Psychomotor & Musculoskeletal Activity: Sitting up in bed Mood: " I need to be discharged" Affect: Constricted Speech/Language: Rapid Thought Processes: Circumstantial, tangential Thought Content: Reality oriented; impoverished; paranoia (?) Perception: Patient denies A/V/T hallucinations Concentration/Attention: Impaired Suicidal Ideations/Plan: Patient denies Homicidal Ideations/Plan: Patient denies Judgment: Poor Insight: Poor Assessment and Plan Impression: R/O overdose. Today the patient presents extremely anxious and irritable during the assessment. Cannot rule out suicide attempt at this time. Although, she denies it. Patient is refusing medication at this time. DDx: r/o Mood Disorder r/o Bipolar Disorder Recommendation/Plan: 1. Continue 1013 and gather collateral information to determine proper treatment and disposition. 2. Continue Haldol 5 mg IM Q6hrs PRN for acute agitation. 3. Will continue to monitor psychosis, mood, sleep, appetite, and side effects.
[2017-11-27] MEDS: PEPCID PO SCH ×2 (11:09→22:18)
[2017-11-27] MEDS: LOVENOX SUB-Q SCH (11:09)
[2017-11-27] MEDS: SODIUM CHLORIDE FLUSH SYRINGE 10 ML IV SCH ×2 (11:11→22:18)
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
--- NOTE | 2017-11-27 15:10 | Progress Note ---
Assessment and Plan Suicidal attempt -Continue 1013 -Psychiatry following Respiratory failure secondary to drug overdose -Status post extubation -Patient is saturating well on room air Toxic encephalopathy secondary to drug overdose, presumably GHB -Resolved Tobacco abuse -Patient counseled on cessation Disposition: Patient is medically cleared for discharge, await psychiatry recommendation Hospitalist Physical General appearance: Present: no acute distress - EENT Eyes: Present: PERRL, EOM intact ENT: hearing intact, clear oral mucosa - Neck Neck: Present: supple - Respiratory Respiratory effort: normal Respiratory: bilateral: CTA - Cardiovascular Rhythm: regular Heart Sounds: Present: S1 & S2 - Extremities Extremities: No edema - Abdominal General gastrointestinal: soft, non-tender, normal bowel sounds - Neurologic Neurologic: CNII-XII intact Subjective Date of service: 11/27/17 Principal diagnosis: Acute Respiratory Failure; Drug OD (GHB) Interval history: Patient continues to state that she wants to go home. denies any chest pain or SOB Objective - Constitutional Vitals: Vital Signs - 12hr 11/27/17 11/27/17 05:52 12:00 Temperature 97.7 F 98.1 F Pulse Rate 47 L Respiratory 19 19 Rate Blood Pressure 91/55 93/61 O2 Sat by Pulse 98 100 Oximetry - Labs CBC & Chem 7: 11/20/17 10:50 11/20/17 10:50
--- NOTE | 2017-11-27 19:35 | Progress Note ---
Assessment and Plan Patient alert, awake and oriented.No complaint of chest pain, shortness of breath and cough.O2 saturation 98% on room air. - Patient Problems (1) Respiratory failure Current Visit: Yes Status: Acute Qualifiers: Chronicity: acute Respiratory failure complication: hypoxia Qualified Code(s): J96.01 - Acute respiratory failure with hypoxia Plan to address problem: Improved. Patient is on room air.O2 saturation 99%. (2) Suicide attempt by drug ingestion Current Visit: Yes Status: Suspected Qualifiers: Encounter type: initial encounter Qualified Code(s): T50.902A - Poisoning by unspecified drugs, medicaments and biological substances, intentional self- harm, initial encounter Plan to address problem: Management as per primary care and psychiatry. (3) Encephalopathy Current Visit: Yes Status: Acute Plan to address problem: Improved. Management as per primary care and neurology. (4) Nicotine dependence unspecified, with withdrawal Current Visit: Yes Status: Acute Qualifiers: Nicotine product type: cigarettes Qualified Code(s): F17.213 - Nicotine dependence, cigarettes, with withdrawal Plan to address problem: Counselled to stop smoking.Appears no withdrawal symptoms at this time. Subjective Date of service: 11/27/17 Principal diagnosis: Acute Respiratory Failure; Drug OD (GHB) Interval history: Patient alert, awake and oriented.No complaint of chest pain, shortness of breath and cough.O2 saturation 98% on room air. Objective Vital Signs - 12hr 11/27/17 11/27/17 12:00 18:44 Temperature 98.1 F 97.3 F L Pulse Rate 96 H Respiratory 19 19 Rate Blood Pressure 93/61 94/61 O2 Sat by Pulse 100 98 Oximetry Constitutional: no acute distress, alert, other (young female, normocephalic and atraumatic) Eyes: non-icteric ENT: oropharynx moist Neck: supple, no lymphadenopathy, no JVD Effort: normal Ascultation: Bilateral: clear Percussion: Bilateral: not dull Cardiovascular: regular rate and rhythm Gastrointestinal: normoactive bowel sounds, soft, non-tender, non-distended Integumentary: normal Extremities: no cyanosis, no edema, pink and warm, pulses normal Neurologic: normal mental status, non-focal exam, pupils equal and round, motor strength normal and Psychiatric: mood appropriate, affect normal CBC and BMP: 11/20/17 10:50 11/20/17 10:50 ABG, PT/INR, D-dimer: ABG POC ABG pH 7.478 (7.35-7.45) H 11/21/17 05:02 POC ABG pCO2 32.3 (35-45) L 11/21/17 05:02 POC ABG pO2 200 (80-105) H 11/21/17 05:02 POC ABG HCO3 24.0 11/21/17 05:02 POC ABG Total CO2 25 11/21/17 05:02 POC ABG O2 Sat 100 11/21/17 05:02 PT/INR, D-dimer PT 13.6 Sec. (12.2-14.9) 11/20/17 10:50 INR 0.99 (0.87-1.13) 11/20/17 10:50 Abnormal lab findings: Abnormal Labs 11/20/17 11/20/17 11/20/17 10:50 10:50 10:50 Lymph % (Auto) 35.4 H [place] % (Auto) 10.0 H POC ABG pH POC ABG pCO2 POC ABG pO2 BUN 20 H Glucose 102 H Salicylates < 0.3 L Acetaminophen 11/20/17 11/20/17 11/21/17 10:50 12:55 05:02 Lymph % (Auto) [place] % (Auto) POC ABG pH 7.478 H POC ABG pCO2 51.3 H 32.3 L POC ABG pO2 500 H 200 H BUN Glucose Salicylates Acetaminophen < 5.0 L Chest x-ray: report reviewed (No acute cardiopulmonary process.), image reviewed Allied health notes reviewed: nursing
[2017-11-28] MEDS: LOVENOX SUB-Q SCH (11:47)
[2017-11-28] MEDS: PEPCID PO SCH (11:48)
[2017-11-28] MEDS: SODIUM CHLORIDE FLUSH SYRINGE 10 ML IV SCH (11:49)
--- NOTE | 2017-11-28 13:08 | Progress Note ---
Subjective - Reason for Consult Consult date: 11/28/17 Reason for consult: Psychiatry Follow-up - Chief Complaint Chief complaint: 'Hello there" Patient is a 32 year old female seen for psychiatric evaluation on the medical floor. She was found unresponsive in a parking lot. She was subsequently intubated. There was a concern with GHB use. Today the patient is calm and cooperative during the assessment. She continue to be adamant that she didn't overdose on any substances. Per collateral information from her father Mr Zander Murrieta at [phone]. He denies that his daughter has a mental health dx nor has she attempted suicide in the past. He does not feel like his daughter overdosed prior to her admission to the hospital. The patient denies SI/HI's and AVH's. Per the staff, no behavioral disturbance overnight. Mental Status Exam - Vital signs Last Vital Signs Temp 98.8 F 11/28/17 05:49 Pulse 66 11/28/17 05:49 Resp 16 11/28/17 05:49 BP 96/64 11/28/17 05:49 Pulse Ox 98 11/28/17 05:49 - Exam Narrative exam: MSE: Appearance: calm, cooperative Behavior: regular eye contact Speech: regular rate and loud tone Mood: "okay" Affect: congruent to mood Thought Process: logical Thought Content: denies SI/HI's and AVH's Motor Activity: lying in bed Cognition: A/O x 3 Insight: appropriate Judgment: appropriate Assessment and Plan Impression: Today the patient is calm and cooperative during the assessment. Overdose has been ruled out. The patient is no threat to self. Recommendation/Plan: Rescind 1013. Discussed precautions while drinking at social gatherings.
[2017-11-28 13:38] VITALS: BP 123/72
--- NOTE | 2017-11-28 14:24 | Discharge Summary ---
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 Notified:: Addie in ED Primary care physician: BRADY ALVAREZ MD Hospitalization Condition: Critical Hospital course: Discharge diagnosis: Suicidal attempt -Continue 1013 -Psychiatry following Respiratory failure secondary to drug overdose -Status post extubation -Patient is saturating well on room air Toxic encephalopathy secondary to drug overdose, presumably GHB -Resolved Tobacco abuse -Patient counseled on cessation Disposition: Patient is medically cleared for discharge, Hospitalist Physical General appearance: Present: no acute distress - EENT Eyes: Present: PERRL, EOM intact ENT: hearing intact, clear oral mucosa - Neck Neck: Present: supple - Respiratory Respiratory effort: normal Respiratory: bilateral: CTA - Cardiovascular Rhythm: regular Heart Sounds: Present: S1 & S2 - Extremities Extremities: No edema - Abdominal General gastrointestinal: soft, non-tender, normal bowel sounds - Neurologic Neurologic: CNII-XII intact Disposition: DC-01 TO HOME OR SELFCARE Time spent for discharge: 34 minutes Core Measure Documentation - Palliative Care Palliative Care/ Comfort Measures: Not Applicable - Core Measures Any of the following diagnoses?: none Exam - Constitutional Vitals: Temp Pulse Resp BP Pulse Ox 98.8 F 85 16 123/72 98 11/28/17 05:49 11/28/17 12:25 11/28/17 05:49 11/28/17 12:25 11/28/17 12:25 Plan Activity: advance as tolerated Weight Bearing Status: Weight Bear as Tolerated Diet: regular Additional Instructions: f/u with psych outpt Follow up with: PRIMARY CAREMD [Primary Care Provider] - 3-5 Days
== END 2017-11-28 16:21 | disposition home or self-care (01) | DRG 917 ==
LOC: ED 10:28 → EEVIPCON 13:32 → CC1 13:32 → 3A 11-21 21:38
PROVIDERS: ADMIT Internal Medicine; ATTEND Internal Medicine
PROC: 05HP33Z Insertion of Infusion Device into Right External Jugular Vein, Percutaneous Approach (ICD-10-PCS; principal; 2017-11-20)
PROC: 009U3ZX Drainage of Spinal Canal, Percutaneous Approach, Diagnostic (ICD-10-PCS; 2017-11-20)
PROC: 4A033R1 Measurement of Arterial Saturation, Peripheral, Percutaneous Approach (ICD-10-PCS; 2017-11-20)
PROC: 5A1945Z Respiratory Ventilation, 24-96 Consecutive Hours (ICD-10-PCS; 2017-11-20)
PROC: 0BH17EZ Insertion of Endotracheal Airway into Trachea, Via Natural or Artificial Opening (ICD-10-PCS; 2017-11-20)
DX: T41.292A Poisoning by other general anesthetics, intentional self-harm, initial encounter (principal); G92 Toxic encephalopathy; J96.01 Acute respiratory failure with hypoxia; F17.213 Nicotine dependence, cigarettes, with withdrawal; E66.9 Obesity, unspecified; F13.10 Sedative, hypnotic or anxiolytic abuse, uncomplicated; Y92.89 Other specified places as the place of occurrence of the external cause; Z71.6 Tobacco abuse counseling; Z68.26 Body mass index [BMI] 26.0-26.9, adult; Z71.51 Drug abuse counseling and surveillance of drug abuser; Z72.89 Other problems related to lifestyle
CPT/HCPCS: 36415; 36600; 70450; 71045; 72125; 80053; 80307; 80320; 81001; 82550; 82803; 82947; 82962; 84160; 84484; 84702; 85025; 85610; 85730; 87040; 87070; 87116; 87205; 89051; 93005; 93010; 94002; 96374; 99291; 99292; G0480; J0133; J0696; J1100; J1630; J1650; J2250; J2704; J3010; J3370; J3486; J7030; J7040